=== PATIENT | male | born 1950 | race Caucasian/White ===

== ENCOUNTER 2020-04-22 13:22 | Inpatient (IN) ==
[~2020-04-22 13:22] MED LIST: MIDAZOLAM 2 MG/2 ML VIAL ONE; fentaNYL 100 MCG/2 ML VIAL ONE
[2020-04-22] MEDS ORDERED: ENOXAPARIN 60 MG/0.6 ML SYRINGE ONE (13:24)
[2020-04-22] MEDS ORDERED: TICAGRELOR 90 MG TABLET ONE (13:30)
[2020-04-22] MEDS ORDERED: TIROFIBAN 5,000 MCG/100 ML PREMIX IV ONE (13:30)
[2020-04-22] MEDS ORDERED: TIROFIBAN 5,000 MCG/100 ML PREMIX IV SCH (13:39)
[2020-04-22] MEDS ORDERED: LIDOCAINE 1%/EPI INJ 20 ML VIAL ONE (14:24)
[2020-04-22] MEDS ORDERED: HEPARIN/NACL 0.9% 2 UNITS/ML 1,000 ML IV ONE (14:24)
[2020-04-22] MEDS ORDERED: ONDANSETRON 4 MG/2 ML VIAL IV PRN (14:26)
[2020-04-22] MEDS ORDERED: HYDROmorphone 2 MG/1 ML VIAL IV PRN (14:26)
[2020-04-22] MEDS ORDERED: ACETAMINOPHEN/CODEINE 300-30 MG TABLET PO PRN (14:26)
[2020-04-22] MEDS ORDERED: guaiFENesin/DM ER 600-30 MG TABLET PO PRN (14:30)
[2020-04-22] MEDS ORDERED: SODIUM CHLORIDE 0.45% 1,000 ML IV SCH (14:30)
[2020-04-22] MEDS ORDERED: LACTULOSE 20 GM/30 ML UDCUP PO PRN (14:30)
[2020-04-22] MEDS ORDERED: POTASSIUM CHLORIDE 20 MEQ TABLET PO PRN (14:31)
[2020-04-22] MEDS ORDERED: INFLUENZA VIRUS VACCINE 0.5 ML SYRINGE IM ONE (17:24)
[2020-04-22] MEDS ORDERED: PNEUMOCOCCAL VACCINE (13 VALENT) 0.5 ML SYRINGE IM ONE (17:26)
[2020-04-22] MEDS: TICAGRELOR 90 MG TABLET PO SCH (20:55)
[2020-04-22] MEDS: ATORVASTATIN 40 MG TABLET PO SCH (20:55)
[2020-04-23 01:04] LABS: Basophils % 0.3 % (0.0-0.8); Eosinophils # 0.2 10*3/uL (0.0-0.87); Eosinophils % 1.5 % (0.00-10.9); Hematocrit 36.7 VOL% (42.0-52.0); Hemoglobin 13.4 GM/DL (14.0-18.0); Immature Granulocytes % 0.4 %; Immature Granulocytes Absolute 0.04 #; Lymphocytes % 10.5 % (21.2-54.2); Mean Corpuscular HGB Conc 36.5 GM/DL (32-36); Mean Corpuscular Volume 92.7 FL (87-102); Monocytes % 9.3 % (1.7-12.7); Platelet Count 163 T/CUMM (130-400); Red Blood Count 3.96 MC/CUMM (3.8-5.5); Red Cell Distribution Width 12.2 % (9.3-17.3); White Blood Count 9.9 T/CUMM (4-12)
[2020-04-23 01:31] LABS: Albumin 3.5 G/DL (3.4-5.0); Bilirubin,Total 1.4 MG/DL (0.2-1.0); Osmolality,Calculated 280.5 MOS/KG (273-304); Total Protein 6.8 G/DL (6.4-8.3)
[2020-04-23 02:14] LABS: Calcium 8.9 MG/DL (8.5-10.1); Osmolality,Calculated 280.5 MOS/KG (273-304)
[2020-04-23] MEDS: ASPIRIN EC 81 MG TABLET PO SCH (08:05)
[2020-04-23] MEDS: PANTOPRAZOLE 40 MG TABLET PO SCH (08:06)
[2020-04-23] MEDS: MULTIVITAMIN (CENTRUM) TABLET PO SCH (08:06)
[2020-04-23] MEDS: TICAGRELOR 90 MG TABLET PO SCH ×2 (08:06→21:30)
[2020-04-23] MEDS ORDERED: GLUCAGON 1 MG VIAL IM PRN (08:47)
[2020-04-23] MEDS ORDERED: DEXTROSE 50% 25 GM/50 ML VIAL IV PRN (08:47)
[2020-04-23] MEDS: DICLOFENAC SODIUM 75 MG TABLET PO SCH ×2 (08:55→21:35)
[2020-04-23] MEDS: GABAPENTIN 300 MG CAPSULE PO SCH ×3 (08:55→21:30)
[2020-04-23] MEDS: traMADol 50 MG TABLET PO PRN ×3 (08:55→21:30)
[2020-04-23] MEDS: METOPROLOL TARTRATE 25 MG TABLET PO SCH ×2 (08:55→21:30)
[2020-04-23] MEDS ORDERED: lisinopriL 2.5 MG TABLET PO SCH (09:00)
[2020-04-23] MEDS ORDERED: lisinopriL 20 MG TABLET PO SCH ×2 (09:00→21:00)
[2020-04-23 10:21] LABS: Risk Ratio 4.96; VLDL CHOLESTEROL 37.4 MG/DL
[2020-04-23 12:23] LABS: CKMB % 5.6 %
[2020-04-23] MEDS: INSULIN LISPRO 100 UNIT/ML SUBCUT SCH ×2 (14:40→17:11)
[2020-04-23] MEDS: ATORVASTATIN 40 MG TABLET PO SCH (21:30)
[2020-04-23] MEDS: TAMSULOSIN 0.4 MG CAPSULE PO SCH (21:31)
[2020-04-24 06:10] LABS: Basophils % 0.7 % (0.0-0.8); Eosinophils # 0.2 10*3/uL (0.0-0.87); Eosinophils % 3.6 % (0.00-10.9); Hematocrit 33.4 VOL% (42.0-52.0); Hemoglobin 11.9 GM/DL (14.0-18.0); Immature Granulocytes % 0.5 %; Immature Granulocytes Absolute 0.03 #; Lymphocytes # 1.2 10*3/uL (1.4-4.0); Lymphocytes % 20.3 % (21.2-54.2); Mean Corpuscular HGB Conc 35.6 GM/DL (32-36); Mean Corpuscular Volume 94.1 FL (87-102); Mean Platelet Volume 9.4 FL (9.6-12.0); Monocytes % 11.2 % (1.7-12.7); Neutrophils % 63.7 % (38.7-73.9); Platelet Count 145 T/CUMM (130-400); Red Blood Count 3.55 MC/CUMM (3.8-5.5); Red Cell Distribution Width 12.6 % (9.3-17.3); White Blood Count 6.1 T/CUMM (4-12)
[2020-04-24 06:54] LABS: CKMB % 3.1 %; Calcium 8.4 MG/DL (8.5-10.1); Osmolality,Calculated 284.4 MOS/KG (273-304)
[2020-04-24] MEDS: INSULIN LISPRO 100 UNIT/ML SUBCUT SCH ×5 (07:16→22:43)
[2020-04-24] MEDS ORDERED: lisinopriL 20 MG TABLET PO SCH (09:00)
[2020-04-24] MEDS: METOPROLOL TARTRATE 25 MG TABLET PO SCH ×2 (09:25→20:43)
[2020-04-24] MEDS: TICAGRELOR 90 MG TABLET PO SCH ×2 (09:25→20:43)
[2020-04-24] MEDS: ASPIRIN EC 81 MG TABLET PO SCH (09:25)
[2020-04-24] MEDS: PANTOPRAZOLE 40 MG TABLET PO SCH (09:26)
[2020-04-24] MEDS: GABAPENTIN 300 MG CAPSULE PO SCH ×3 (09:26→20:43)
[2020-04-24] MEDS: MULTIVITAMIN (CENTRUM) TABLET PO SCH (09:26)
[2020-04-24] MEDS: DICLOFENAC SODIUM 75 MG TABLET PO SCH ×2 (09:26→20:43)
[2020-04-24] MEDS ORDERED: SODIUM CHLORIDE 0.9% 1,000 ML IV SCH (09:30)
[2020-04-24] MEDS: traMADol 50 MG TABLET PO PRN (09:36)
[2020-04-24] MEDS: ATORVASTATIN 40 MG TABLET PO SCH (20:44)
[2020-04-24] MEDS: TAMSULOSIN 0.4 MG CAPSULE PO SCH (20:44)
[2020-04-25 04:50] LABS: Basophils % 0.5 % (0.0-0.8); Eosinophils # 0.3 10*3/uL (0.0-0.87); Eosinophils % 4.6 % (0.00-10.9); Hematocrit 33.6 VOL% (42.0-52.0); Hemoglobin 11.9 GM/DL (14.0-18.0); Immature Granulocytes % 0.5 %; Immature Granulocytes Absolute 0.03 #; Lymphocytes # 1.3 10*3/uL (1.4-4.0); Lymphocytes % 20.8 % (21.2-54.2); Mean Corpuscular HGB Conc 35.4 GM/DL (32-36); Mean Corpuscular Volume 95.5 FL (87-102); Mean Platelet Volume 9.4 FL (9.6-12.0); Monocytes % 8.6 % (1.7-12.7); Platelet Count 138 T/CUMM (130-400); Red Blood Count 3.52 MC/CUMM (3.8-5.5); Red Cell Distribution Width 12.6 % (9.3-17.3); White Blood Count 6.3 T/CUMM (4-12)
[2020-04-25 05:29] LABS: CKMB % 2.7 %; Calcium 8.5 MG/DL (8.5-10.1); Osmolality,Calculated 288.1 MOS/KG (273-304)
[2020-04-25] MEDS: INSULIN LISPRO 100 UNIT/ML SUBCUT SCH (07:56)
[2020-04-25] MEDS: ASPIRIN EC 81 MG TABLET PO SCH (08:33)
[2020-04-25] MEDS: TICAGRELOR 90 MG TABLET PO SCH (08:33)
[2020-04-25] MEDS: METOPROLOL TARTRATE 25 MG TABLET PO SCH (08:34)
[2020-04-25] MEDS: DICLOFENAC SODIUM 75 MG TABLET PO SCH (08:36)
[2020-04-25] MEDS: PANTOPRAZOLE 40 MG TABLET PO SCH (08:36)
[2020-04-25] MEDS: GABAPENTIN 300 MG CAPSULE PO SCH (08:36)
[2020-04-25] MEDS: MULTIVITAMIN (CENTRUM) TABLET PO SCH (08:36)
[2020-04-25 08:39] VITALS: BP 110/64
== END 2020-04-25 10:50 | disposition home or self-care (01) | DRG 247 ==
LOC: N.CL 13:22 → N.CVR 16:05 → N.ICU 04-23 00:30 → N.TELES 04-23 19:22
PROVIDERS: ADMIT Internal Medicine Interventional Cardiology; ATTEND Internal Medicine Interventional Cardiology
PROC: CLCCHCL (ICD-10-PCS; 2020-04-22 13:45)

== ENCOUNTER 2021-01-04 15:40 | Inpatient (IN) ==
[2021-01-04 20:40] LABS: Basophils % 0.2 % (0.0-0.8); Eosinophils # 0.2 10*3/uL (0.0-0.87); Eosinophils % 2.8 % (0.00-10.9); Hematocrit 37.2 VOL% (42.0-52.0); Hemoglobin 12.8 GM/DL (14.0-18.0); Immature Granulocytes % 0.6 %; Immature Granulocytes Absolute 0.05 #; Lymphocytes # 1.2 10*3/uL (1.4-4.0); Lymphocytes % 13.2 % (21.2-54.2); Mean Corpuscular HGB Conc 34.4 GM/DL (32-36); Mean Corpuscular Volume 96.1 FL (87-102); Monocytes % 9.4 % (1.7-12.7); Neutrophils % 73.8 % (38.7-73.9); Platelet Count 143 T/CUMM (130-400); Red Blood Count 3.87 MC/CUMM (3.8-5.5); Red Cell Distribution Width 12.9 % (9.3-17.3); White Blood Count 8.7 T/CUMM (4-12)
[2021-01-04 20:59] LABS: Albumin 3.6 G/DL (3.4-5.0); Calcium 8.8 MG/DL (8.5-10.1); Osmolality,Calculated 276.7 MOS/KG (273-304); Potassium 4.1 MMOL/L (3.5-5.1); Total Protein 7.2 G/DL (6.4-8.2)
[2021-01-04] MEDS ORDERED: VANCOMYCIN INJ 1,000 MG in SODIUM CHLORIDE 0.9% 250 ML IV STA (21:29)
[2021-01-04 21:33] LABS: Sedimentation Rate-Westergren 45 MM/HR (0-20)
[2021-01-04] MEDS ORDERED: DEXTROSE 50% 25 GM/50 ML VIAL IV PRN (22:25)
[2021-01-04] MEDS ORDERED: ACETAMINOPHEN 325 MG TABLET PO PRN (22:25)
[2021-01-04] MEDS ORDERED: GLUCAGON 1 MG VIAL IM PRN (22:25)
[2021-01-04] MEDS ORDERED: VANCOMYCIN IV SCH (23:00)
[2021-01-04] MEDS: TICAGRELOR 90 MG TABLET PO SCH (23:48)
[2021-01-04] MEDS: METOPROLOL TARTRATE 25 MG TABLET PO SCH (23:48)
[2021-01-04] MEDS: TAMSULOSIN 0.4 MG CAPSULE PO SCH (23:49)
[2021-01-04] MEDS: ATORVASTATIN 40 MG TABLET PO SCH (23:49)
[2021-01-05] MEDS ORDERED: hydrALAZINE 20 MG/1 ML VIAL IV PRN (01:21)
[2021-01-05 05:08] LABS: Basophils % 0.3 % (0.0-0.8); Eosinophils # 0.2 10*3/uL (0.0-0.87); Eosinophils % 1.8 % (0.00-10.9); Hematocrit 34.6 VOL% (42.0-52.0); Hemoglobin 12.7 GM/DL (14.0-18.0); Immature Granulocytes % 0.4 %; Immature Granulocytes Absolute 0.04 #; Lymphocytes % 10.7 % (21.2-54.2); Mean Corpuscular HGB Conc 36.7 GM/DL (32-36); Mean Corpuscular Volume 92.3 FL (87-102); Mean Platelet Volume 9.1 FL (9.6-12.0); Monocytes % 9.9 % (1.7-12.7); Neutrophils % 76.9 % (38.7-73.9); Platelet Count 161 T/CUMM (130-400); Red Blood Count 3.75 MC/CUMM (3.8-5.5); Red Cell Distribution Width 12.6 % (9.3-17.3); White Blood Count 9.3 T/CUMM (4-12)
[2021-01-05 05:22] LABS: Albumin 3.4 G/DL (3.4-5.0); Bilirubin,Total 1.8 MG/DL (0.2-1.0); Calcium 8.8 MG/DL (8.5-10.1); Osmolality,Calculated 277.7 MOS/KG (273-304); Total Protein 6.8 G/DL (6.4-8.2)
[2021-01-05] MEDS: lisinopriL 20 MG TABLET PO SCH (08:29)
[2021-01-05] MEDS: ASPIRIN EC 81 MG TABLET PO SCH (08:29)
[2021-01-05] MEDS: PANTOPRAZOLE 40 MG TABLET PO SCH (08:29)
[2021-01-05] MEDS: TICAGRELOR 90 MG TABLET PO SCH ×2 (08:30→20:03)
[2021-01-05] MEDS: GABAPENTIN 300 MG CAPSULE PO SCH ×3 (08:30→20:04)
[2021-01-05] MEDS: METOPROLOL TARTRATE 25 MG TABLET PO SCH ×2 (08:30→20:03)
[2021-01-05] MEDS: VANCOMYCIN INJ 1,250 MG in SODIUM CHLORIDE 0.9% 250 ML IV SCH ×2 (08:31→20:04)
[2021-01-05] MEDS: LACTATED RINGERS 1,000 ML IV SCH ×2 (08:32→15:05)
[2021-01-05] MEDS ORDERED: ENOXAPARIN 40 MG/0.4 ML SYRINGE SUBCUT SCH (09:00)
[2021-01-05] MEDS ORDERED: fentaNYL 100 MCG/2 ML VIAL ONE (11:11)
[2021-01-05] MEDS ORDERED: LIDOCAINE 2% 5 ML VIAL ONE (11:11)
[2021-01-05] MEDS ORDERED: propofoL 200 MG/20 ML VIAL IV ONE (11:11)
[2021-01-05] MEDS ORDERED: MIDAZOLAM 2 MG/2 ML VIAL ONE (11:12)
[2021-01-05] MEDS ORDERED: BACITRACIN OINT 0.9 GM PACK TOP ONE (12:57)
[2021-01-05] MEDS ORDERED: PHENYLEPHRINE 1 MG/10 ML SYRINGE IV ONE (13:09)
[2021-01-05] MEDS ORDERED: SEVOFLURANE 1 UNIT/15 MINUTE INH ONE (13:09)
[2021-01-05] MEDS ORDERED: ONDANSETRON 4 MG/2 ML VIAL ONE (13:09)
[2021-01-05] MEDS ORDERED: MORPHINE 4 MG/1 ML VIAL IV PRN (13:15)
[2021-01-05] MEDS: TAMSULOSIN 0.4 MG CAPSULE PO SCH (20:03)
[2021-01-05] MEDS: ATORVASTATIN 40 MG TABLET PO SCH (20:03)
[2021-01-06] MEDS: TICAGRELOR 90 MG TABLET PO SCH ×2 (08:49→21:55)
[2021-01-06] MEDS: GABAPENTIN 300 MG CAPSULE PO SCH ×3 (08:49→21:55)
[2021-01-06] MEDS: PANTOPRAZOLE 40 MG TABLET PO SCH (08:49)
[2021-01-06] MEDS: METOPROLOL TARTRATE 25 MG TABLET PO SCH ×2 (08:49→21:55)
[2021-01-06] MEDS: lisinopriL 20 MG TABLET PO SCH ×2 (08:49→09:20)
[2021-01-06] MEDS: ASPIRIN EC 81 MG TABLET PO SCH (08:49)
[2021-01-06] MEDS: VANCOMYCIN INJ 1,250 MG in SODIUM CHLORIDE 0.9% 250 ML IV SCH ×2 (08:50→21:56)
[2021-01-06] MEDS: metFORMIN 500 MG TABLET PO SCH (16:48)
[2021-01-06] MEDS: ATORVASTATIN 40 MG TABLET PO SCH (21:55)
[2021-01-06] MEDS: TAMSULOSIN 0.4 MG CAPSULE PO SCH (21:55)
[2021-01-07] MEDS: metFORMIN 500 MG TABLET PO SCH (09:04)
[2021-01-07] MEDS: lisinopriL 20 MG TABLET PO SCH (09:04)
[2021-01-07] MEDS: GABAPENTIN 300 MG CAPSULE PO SCH (09:04)
[2021-01-07] MEDS: ASPIRIN EC 81 MG TABLET PO SCH (09:04)
[2021-01-07] MEDS: TICAGRELOR 90 MG TABLET PO SCH (09:04)
[2021-01-07] MEDS: METOPROLOL TARTRATE 25 MG TABLET PO SCH (09:04)
[2021-01-07] MEDS: VANCOMYCIN INJ 1,250 MG in SODIUM CHLORIDE 0.9% 250 ML IV SCH (09:04)
[2021-01-07] MEDS: PANTOPRAZOLE 40 MG TABLET PO SCH (09:04)
[2021-01-07 12:23] VITALS: BP 119/63
== END 2021-01-07 14:31 | disposition home health service (06) | DRG 502 ==
LOC: N.EDINP 15:40 → N.ED 15:40 → SUATTDRO 22:25 → N.TELEN 01-05 05:23
PROVIDERS: ADMIT Internal Medicine; ATTEND Internal Medicine Geriatric Medicine

== ENCOUNTER 2021-04-17 10:02 | Inpatient (IN) ==
[2021-04-17 10:29] LABS: Basophils % 0.3 % (0.0-0.8); Eosinophils # 0.1 10*3/uL (0.0-0.87); Eosinophils % 1.2 % (0.00-10.9); Hematocrit 24.4 VOL% (42.0-52.0); Hemoglobin 8.3 GM/DL (14.0-18.0); Immature Granulocytes % 0.5 %; Immature Granulocytes Absolute 0.04 #; Lymphocytes # 0.7 10*3/uL (1.4-4.0); Mean Corpuscular Volume 98.4 FL (87-102); Mean Platelet Volume 9.7 FL (9.6-12.0); Monocytes % 7.9 % (1.7-12.7); Neutrophils % 80.1 % (38.7-73.9); Platelet Count 162 T/CUMM (130-400); Red Blood Count 2.48 MC/CUMM (3.8-5.5); Red Cell Distribution Width 14.7 % (9.3-17.3); White Blood Count 7.4 T/CUMM (4-12)
[2021-04-17 10:40] LABS: PT Patient Result 11.4 SECS (10.5-12.0); Partial Thromboplastin Time 29.3 SECS (23.9-33.8)
[2021-04-17 11:05] LABS: Albumin 3.7 G/DL (3.4-5.0); Calcium 8.5 MG/DL (8.5-10.1); Osmolality,Calculated 282.7 MOS/KG (273-304); Potassium 3.8 MMOL/L (3.5-5.1); Total Protein 6.5 G/DL (6.4-8.2)
[2021-04-17] MEDS ORDERED: NITROGLYCERIN SL 0.4 MG TABLET SL PRN (11:13)
[2021-04-17] MEDS ORDERED: MORPHINE 2 MG/1 ML SYRINGE IV STA (11:19)
[2021-04-17] MEDS ORDERED: ONDANSETRON 4 MG/2 ML VIAL IV ONE (11:20)
[2021-04-17] MEDS ORDERED: MORPHINE 2 MG/1 ML SYRINGE ONE (11:20)
[2021-04-17] MEDS ORDERED: ONDANSETRON 4 MG/2 ML VIAL ONE (11:20)
[2021-04-17] MEDS ORDERED: ISOSORBIDE MONONITRATE 30 MG TABLET PO SCH (11:30)
[2021-04-17] MEDS ORDERED: ACETAMINOPHEN 325 MG TABLET PO PRN (11:31)
[2021-04-17] MEDS ORDERED: ONDANSETRON 4 MG/2 ML VIAL IV PRN (11:31)
[2021-04-17] MEDS ORDERED: DOCUSATE SODIUM 100 MG CAPSULE PO PRN (11:31)
[2021-04-17] MEDS ORDERED: GLUCAGON 1 MG VIAL IM PRN (11:31)
[2021-04-17] MEDS ORDERED: DEXTROSE 50% 25 GM/50 ML VIAL IV PRN (11:31)
[2021-04-17] MEDS: TICAGRELOR 90 MG TABLET PO SCH ×2 (13:43→20:57)
[2021-04-17] MEDS: METOPROLOL TARTRATE 50 MG TABLET PO SCH ×2 (13:43→20:57)
[2021-04-17] MEDS ORDERED: ENOXAPARIN 80 MG/0.8 ML SYRINGE SUBCUT SCH (15:30)
[2021-04-17] MEDS: INSULIN REGULAR 100 UNIT/ML SUBCUT SCH ×2 (15:42→21:05)
[2021-04-17 16:07] LABS: Calcium 8.5 MG/DL (8.5-10.1); Osmolality,Calculated 281.8 MOS/KG (273-304); Potassium 4.5 MMOL/L (3.5-5.1)
[2021-04-17] MEDS ORDERED: traMADol 50 MG TABLET PO PRN (16:37)
[2021-04-17 16:45] LABS: Basophils % 0.3 % (0.0-0.8); Eosinophils % 0.2 % (0.00-10.9); Hematocrit 26.4 VOL% (42.0-52.0); Hemoglobin 8.8 GM/DL (14.0-18.0); Immature Granulocytes % 0.9 %; Immature Granulocytes Absolute 0.08 #; Lymphocytes # 0.8 10*3/uL (1.4-4.0); Lymphocytes % 8.4 % (21.2-54.2); Mean Corpuscular HGB Conc 33.3 GM/DL (32-36); Mean Corpuscular Volume 100.8 FL (87-102); Mean Platelet Volume 9.4 FL (9.6-12.0); Monocytes % 9.5 % (1.7-12.7); Neutrophils % 80.7 % (38.7-73.9); Platelet Count 220 T/CUMM (130-400); Red Blood Count 2.62 MC/CUMM (3.8-5.5); White Blood Count 9.2 T/CUMM (4-12)
[2021-04-17] MEDS: ATORVASTATIN 40 MG TABLET PO SCH (20:57)
[2021-04-17] MEDS ORDERED: METOPROLOL TARTRATE 25 MG TABLET PO SCH (21:00)
[2021-04-17] MEDS: MORPHINE 2 MG/1 ML SYRINGE IV PRN (22:48)
[2021-04-17] MEDS ORDERED: SODIUM CHLORIDE 0.9% 1,000 ML IV ONE (23:12)
[2021-04-17 23:21] LABS: Basophils % 0.2 % (0.0-0.8); Eosinophils % 0.1 % (0.00-10.9); Hematocrit 27.9 VOL% (42.0-52.0); Hemoglobin 9.2 GM/DL (14.0-18.0); Immature Granulocytes % 1.8 %; Immature Granulocytes Absolute 0.21 #; Lymphocytes # 1.7 10*3/uL (1.4-4.0); Lymphocytes % 14.8 % (21.2-54.2); Mean Corpuscular Volume 101.5 FL (87-102); Mean Platelet Volume 9.8 FL (9.6-12.0); Monocytes % 10.1 % (1.7-12.7); NRBC # 0.02 10*3/uL; Platelet Count 231 T/CUMM (130-400); Red Blood Count 2.75 MC/CUMM (3.8-5.5); Red Cell Distribution Width 15.7 % (9.3-17.3); White Blood Count 11.6 T/CUMM (4-12)
[2021-04-17] MEDS ORDERED: SUCCINYLCHOLINE 200 MG/10 ML VIAL IV ONE (23:40)
[2021-04-17] MEDS ORDERED: ETOMIDATE 20 MG/10 ML VIAL IV ONE ×2 (23:40→23:41)
[2021-04-17] MEDS ORDERED: SUCCINYLCHOLINE 200 MG/10 ML VIAL ONE (23:42)
[2021-04-17 23:49] LABS: Albumin 3.7 G/DL (3.4-5.0); Bilirubin,Total 3.8 MG/DL (0.20-1.00); Calcium 8.6 MG/DL (8.5-10.1); Osmolality,Calculated 275.4 MOS/KG (273-304)
[2021-04-17 23:55] LABS: Potassium 6.8 MMOL/L (3.5-5.1)
[2021-04-18] MEDS ORDERED: DEXTROSE 50% 25 GM/50 ML SYRINGE IV ONE (00:02)
[2021-04-18] MEDS ORDERED: SODIUM BICARBONATE 50 MEQ/50 ML SYRINGE IV ONE ×4 (00:02→19:46)
[2021-04-18] MEDS ORDERED: SUCCINYLCHOLINE 200 MG/10 ML VIAL ONE (00:02)
[2021-04-18] MEDS ORDERED: CALCIUM CHLORIDE 1,000 MG/10 ML SYRINGE IV ONE (00:02)
[2021-04-18] MEDS ORDERED: INSULIN REGULAR 100 UNIT/ML ONE (00:02)
[2021-04-18] MEDS ORDERED: ATROPINE 1 MG/10 ML SYRINGE ONE ×2 (00:02→10:32)
[2021-04-18] MEDS ORDERED: ETOMIDATE 20 MG/10 ML VIAL IV ONE (00:02)
[2021-04-18] MEDS ORDERED: EPINEPHrine 1 MG/10 ML SYRINGE ONE ×4 (00:02→12:32)
[2021-04-18] MEDS ORDERED: EPINEPHrine 1 MG/ML VIAL ONE ×2 (00:13→10:24)
[2021-04-18] MEDS ORDERED: LIDOCAINE 1% 20 ML VIAL ONE (00:13)
[2021-04-18] MEDS ORDERED: HEPARIN/NACL 0.9% 2 UNITS/ML 2,000 UNIT/1,000 ML BAG IV ONE (00:13)
[2021-04-18 00:29] LABS: ABG Base Excess -17.1 MMOL/L (-2.5-2.5); ABG HCO3 11.4 MMOL/L (20-26); ABG Oxygen Saturation 99.6 % (95-100); ABG PCO2 40.2 MM HG (35-48); ABG TCO2 11.7 MMOL/L (23-27)
[2021-04-18 00:31] LABS: ABG PH 7.083 (7.35-7.45)
[2021-04-18] MEDS ORDERED: MIDAZOLAM 2 MG/2 ML VIAL ONE (00:52)
[2021-04-18] MEDS ORDERED: HEPARIN 5,000 UNIT/1 ML VIAL ONE ×2 (00:52→01:00)
[2021-04-18] MEDS ORDERED: HEPARIN/NACL 0.9% 2 UNITS/ML 1,000 UNIT/500 ML BAG IV ONE (01:12)
[2021-04-18] MEDS ORDERED: TICAGRELOR 90 MG TABLET ONE (01:29)
[2021-04-18] MEDS ORDERED: FUROSEMIDE INJ 200 MG in SODIUM CHLORIDE 0.9% 80 ML IV SCH (01:30)
[2021-04-18] MEDS: SODIUM BICARB INJ 150 MEQ in STERILE WATER INJ 850 ML IV SCH ×4 (01:59→20:42)
[2021-04-18 03:09] LABS: ABG Base Excess -8.2 MMOL/L (-2.5-2.5); ABG HCO3 18.4 MMOL/L (20-26); ABG Oxygen Saturation 98.6 % (95-100); ABG PCO2 42.8 MM HG (35-48); ABG PH 7.251 (7.35-7.45); ABG PO2 288.7 MM HG (80-95); ABG TCO2 19.7 MMOL/L (23-27)
[2021-04-18 03:24] LABS: Basophils % 0.1 % (0.0-0.8); Eosinophils % 0.1 % (0.00-10.9); Hematocrit 20.8 VOL% (42.0-52.0); Immature Granulocytes % 2.8 %; Immature Granulocytes Absolute 0.49 #; Lymphocytes # 1.6 10*3/uL (1.4-4.0); Lymphocytes % 9.3 % (21.2-54.2); Mean Corpuscular HGB Conc 33.2 GM/DL (32-36); Mean Platelet Volume 10.1 FL (9.6-12.0); Monocytes % 8.5 % (1.7-12.7); NRBC # 0.04 10*3/uL; Neutrophils % 79.2 % (38.7-73.9); Platelet Count 213 T/CUMM (130-400); White Blood Count 17.5 T/CUMM (4-12)
[2021-04-18 03:25] LABS: Hemoglobin 6.9 GM/DL (14.0-18.0); Red Blood Count 2.06 MC/CUMM (3.8-5.5)
[2021-04-18 03:48] LABS: Calcium 9.1 MG/DL (8.5-10.1); Osmolality,Calculated 294.1 MOS/KG (273-304); Potassium 4.6 MMOL/L (3.5-5.1); Risk Ratio 2.14; Thyroid Stimulating Hormone 3.57 uIU/ml (0.358-3.74); VLDL Cholesterol 22.6 MG/DL
[2021-04-18 04:03] LABS: Band Neutrophils 5 % (0-10); Lymphocytes 4 % (20-55); Segmented Neutrophils 89 % (50-85); Total Cells Counted 100
[2021-04-18 04:04] LABS: Anisocytosis 1+; Microcytosis 1+; Ovalocytes Slight; Polychromasia Slight
[2021-04-18 05:33] LABS: ABG HCO3 17.8 MMOL/L (20-26); ABG PH 7.317 (7.35-7.45); ABG TCO2 16.6 MMOL/L (23-27)
[2021-04-18 06:23] LABS: Basophils % 0.1 % (0.0-0.8); Hematocrit 19.2 VOL% (42.0-52.0); Hemoglobin 6.5 GM/DL (14.0-18.0); Immature Granulocytes % 1.4 %; Immature Granulocytes Absolute 0.29 #; Lymphocytes % 4.8 % (21.2-54.2); Mean Corpuscular HGB Conc 33.9 GM/DL (32-36); Monocytes % 9.3 % (1.7-12.7); NRBC # 0.09 10*3/uL; Neutrophils % 84.4 % (38.7-73.9); Platelet Count 227 T/CUMM (130-400); Red Blood Count 1.92 MC/CUMM (3.8-5.5); Red Cell Distribution Width 15.2 % (9.3-17.3); White Blood Count 20.7 T/CUMM (4-12)
[2021-04-18 06:41] LABS: Band Neutrophils 7 % (0-10); Lymphocytes 3 % (20-55); Metamyelocytes 1 %; Segmented Neutrophils 81 % (50-85); Total Cells Counted 100
[2021-04-18 06:42] LABS: Polychromasia Slight
[2021-04-18 06:43] LABS: Microcytosis 2+; Ovalocytes Slight
[2021-04-18 06:44] LABS: Platelet Estimate Normal
[2021-04-18] MEDS ORDERED: SODIUM CHLORIDE 0.9% 1,000 ML IV PRN ×2 (06:44→12:53)
[2021-04-18 07:35] LABS: Amorphous Crystals,Urine Occasional /HPF (Few); Bacteria,Urine Few /HPF (Few); Bilirubin,Urine Negative (Negative); Blood, Urine Moderate mg/dL (Negative); Glucose,Urine (UA) 50 mg/dL (Negative); Hyaline Casts,Urine 14 /LPF (0-3); Ketones,Urine Negative (Negative); Mucus,Urine Occasional /LPF (Occasional); Nitrite,Urine Negative (Negative); Protein,Urine 100 MG/DL; RBC,Urine 4 /HPF (0-4); Squamous Epithelial Cell,Urine Occasional /HPF (0-10); Urine Appearance CLOUDY (Clear); Urine Color Amber (Yellow); Urine Specific Gravity 1.032 (1.001-1.035); Urine Urobilinogen < 2.0 EU/DL (0.2-1.0)
[2021-04-18] MEDS ORDERED: lisinopriL 20 MG TABLET PO SCH (09:00)
[2021-04-18] MEDS ORDERED: PANTOPRAZOLE 40 MG TABLET PO SCH ×2 (09:00)
[2021-04-18] MEDS ORDERED: SODIUM CHLORIDE 0.9% 500 ML IV ONE (09:02)
[2021-04-18] MEDS ORDERED: NOREPINEPHRINE 4 MG/4 ML VIAL IV ONE (09:12)
[2021-04-18] MEDS: NOREPINEPHRINE 16 MG in SODIUM CHLORIDE 0.9% 234 ML IV PRN ×3 (09:21→21:16)
[2021-04-18] MEDS: INSULIN REGULAR 100 UNIT/ML SUBCUT SCH ×3 (09:41→15:26)
[2021-04-18 10:01] LABS: Albumin 2.8 G/DL (3.4-5.0); Bilirubin,Direct 1.58 MG/DL (0.0-0.20); Bilirubin,Indirect 2.3 MG/DL (0.0-1.0); Bilirubin,Total 3.9 MG/DL (0.20-1.00); Total Protein 5.5 G/DL (6.4-8.2)
[2021-04-18] MEDS: PANTOPRAZOLE 40 MG VIAL IV SCH ×2 (10:04→22:15)
[2021-04-18] MEDS: ASPIRIN EC 81 MG TABLET PO SCH (10:04)
[2021-04-18] MEDS: TICAGRELOR 90 MG TABLET PO SCH ×2 (10:04→22:15)
[2021-04-18] MEDS ORDERED: SODIUM CHLORIDE 0.9% 500 ML BAG IV ONE (10:32)
[2021-04-18 10:41] LABS: ABG Base Excess -17.4 MMOL/L (-2.5-2.5); ABG HCO3 11.1 MMOL/L (20-26); ABG Oxygen Saturation 99.1 % (95-100); ABG PCO2 32.7 MM HG (35-48); ABG TCO2 10.5 MMOL/L (23-27); Glucose Heart Surgery 141 MG/DL (74-106); Hematocrit Heart Surgery 22.7 PERCENT (42-52); Hemoglobin Heart Surgery 7.3 G/DL (14.0-18.0); Potassium Heart/CVR 4.9 MMOL/L (3.5-5.1)
[2021-04-18 10:42] LABS: ABG PH 7.123 (7.35-7.45)
[2021-04-18 11:15] LABS: Basophils % 0.1 % (0.0-0.8); Hematocrit 20.1 VOL% (42.0-52.0); Hemoglobin 6.5 GM/DL (14.0-18.0); Immature Granulocytes % 1.5 %; Immature Granulocytes Absolute 0.32 #; Lymphocytes # 1.1 10*3/uL (1.4-4.0); Lymphocytes % 5.1 % (21.2-54.2); Mean Corpuscular HGB Conc 32.3 GM/DL (32-36); Mean Platelet Volume 10.4 FL (9.6-12.0); Monocytes % 9.4 % (1.7-12.7); NRBC # 0.15 10*3/uL; Neutrophils % 83.9 % (38.7-73.9); Platelet Count 252 T/CUMM (130-400); Red Blood Count 1.97 MC/CUMM (3.8-5.5)
[2021-04-18 11:22] LABS: INR 1.6; PT Patient Result 17.2 SECS (10.5-12.0); Partial Thromboplastin Time 28.2 SECS (23.9-33.8)
[2021-04-18 12:07] LABS: Albumin 2.4 G/DL (3.4-5.0); Bilirubin,Total 3.2 MG/DL (0.20-1.00); Osmolality,Calculated 301.6 MOS/KG (273-304); Potassium 4.9 MMOL/L (3.5-5.1); Total Protein 4.8 G/DL (6.4-8.2)
[2021-04-18 12:28] LABS: Band Neutrophils 8 % (0-10); Lymphocytes 4 % (20-55); Metamyelocytes 2 %; Segmented Neutrophils 83 % (50-85); Total Cells Counted 100
[2021-04-18 12:29] LABS: Microcytosis 1+; Polychromasia Slight
[2021-04-18 12:30] LABS: Platelet Estimate Normal
[2021-04-18] MEDS ORDERED: SODIUM BICARBONATE 50 MEQ/50 ML VIAL IV ONE ×2 (12:37→12:42)
[2021-04-18] MEDS ORDERED: ALBUMIN 5% 12.5 GM/250 ML VIAL IV ONE ×2 (12:43→12:48)
[2021-04-18] MEDS ORDERED: cefTRIAXone 1,000 MG in SODIUM CHLORIDE 0.9% 100 ML IV ONE (12:44)
[2021-04-18 13:42] LABS: Hematocrit 22.9 VOL% (42.0-52.0); Hemoglobin 7.4 GM/DL (14.0-18.0)
[2021-04-18] MEDS: PIPERACILLIN/TAZOBACTAM 3.375 MG in SODIUM CHLORIDE 0.9% 100 ML IV SCH (13:43)
[2021-04-18 16:46] LABS: ABG Base Excess -12.7 MMOL/L (-2.5-2.5); ABG HCO3 14.5 MMOL/L (20-26); ABG Oxygen Saturation 99.9 % (95-100); ABG PH 7.218 (7.35-7.45); ABG TCO2 13.4 MMOL/L (23-27)
[2021-04-18] MEDS ORDERED: CALCIUM GLUCONATE 2,000 MG in SODIUM CHLORIDE 0.9% 100 ML IV ONE (20:00)
[2021-04-18 20:40] LABS: Hemoglobin 9.1 GM/DL (14.0-18.0)
[2021-04-18 20:47] LABS: Osmolality,Calculated 295.1 MOS/KG (273-304); Potassium 4.6 MMOL/L (3.5-5.1)
[2021-04-18] MEDS: ATORVASTATIN 40 MG TABLET PO SCH (22:15)
[2021-04-18] MEDS: TAMSULOSIN 0.4 MG CAPSULE PO SCH (22:15)
[2021-04-19] MEDS: INSULIN REGULAR 100 UNIT/ML SUBCUT SCH ×4 (00:11→18:01)
[2021-04-19 00:16] LABS: ABG Base Excess -7.6 MMOL/L (-2.5-2.5); ABG HCO3 17.5 MMOL/L (20-26); ABG Oxygen Saturation 98.5 % (95-100); ABG PCO2 33.8 MM HG (35-48); ABG PH 7.331 (7.35-7.45); ABG PO2 241.9 MM HG (80-95); ABG TCO2 18.5 MMOL/L (23-27)
[2021-04-19 00:40] LABS: Basophils % 0.1 % (0.0-0.8); Hematocrit 27.4 VOL% (42.0-52.0); Hemoglobin 9.2 GM/DL (14.0-18.0); Immature Granulocytes % 2.1 %; Immature Granulocytes Absolute 0.34 #; Lymphocytes # 0.6 10*3/uL (1.4-4.0); Lymphocytes % 3.9 % (21.2-54.2); Mean Corpuscular HGB Conc 33.6 GM/DL (32-36); Mean Corpuscular Volume 96.1 FL (87-102); Monocytes % 7.6 % (1.7-12.7); NRBC # 0.57 10*3/uL; Neutrophils % 86.3 % (38.7-73.9); Platelet Count 173 T/CUMM (130-400); Red Blood Count 2.85 MC/CUMM (3.8-5.5); Red Cell Distribution Width 17.6 % (9.3-17.3); White Blood Count 16.1 T/CUMM (4-12)
[2021-04-19] MEDS: PIPERACILLIN/TAZOBACTAM 3.375 MG in SODIUM CHLORIDE 0.9% 100 ML IV SCH ×2 (00:53→12:50)
[2021-04-19 01:25] LABS: Band Neutrophils 2 % (0-10); Lymphocytes 4 % (20-55); Nucleated Red Blood Cells 3 (0-5); Segmented Neutrophils 87 % (50-85); Total Cells Counted 100
[2021-04-19 01:27] LABS: Hypochromasia 1+; Platelet Estimate Normal; Polychromasia Few
[2021-04-19] MEDS: MORPHINE 2 MG/1 ML SYRINGE IV PRN ×2 (02:12→05:42)
[2021-04-19] MEDS: SODIUM BICARB INJ 150 MEQ in STERILE WATER INJ 850 ML IV SCH ×3 (04:18→16:05)
[2021-04-19 04:22] LABS: Basophils % 0.1 % (0.0-0.8); Hematocrit 26.7 VOL% (42.0-52.0); Hemoglobin 8.7 GM/DL (14.0-18.0); Immature Granulocytes % 1.1 %; Immature Granulocytes Absolute 0.15 #; Lymphocytes # 0.8 10*3/uL (1.4-4.0); Lymphocytes % 5.6 % (21.2-54.2); Mean Corpuscular HGB Conc 32.6 GM/DL (32-36); Mean Corpuscular Volume 94.7 FL (87-102); Mean Platelet Volume 9.9 FL (9.6-12.0); Monocytes % 6.4 % (1.7-12.7); NRBC # 0.68 10*3/uL; Neutrophils % 86.8 % (38.7-73.9); Platelet Count 157 T/CUMM (130-400); Red Blood Count 2.82 MC/CUMM (3.8-5.5); Red Cell Distribution Width 17.7 % (9.3-17.3); White Blood Count 13.9 T/CUMM (4-12)
[2021-04-19 04:28] LABS: ABG Base Excess -3.5 MMOL/L (-2.5-2.5); ABG HCO3 21.5 MMOL/L (20-26); ABG PCO2 35.6 MM HG (35-48); ABG PH 7.378 (7.35-7.45); ABG TCO2 17.9 MMOL/L (23-27)
[2021-04-19 05:09] LABS: Albumin 2.8 G/DL (3.4-5.0); Bilirubin,Total 4.4 MG/DL (0.20-1.00); Osmolality,Calculated 306.7 MOS/KG (273-304); Potassium 4.4 MMOL/L (3.5-5.1); Total Protein 5.1 G/DL (6.4-8.2)
[2021-04-19] MEDS: NOREPINEPHRINE 16 MG in SODIUM CHLORIDE 0.9% 234 ML IV PRN ×2 (07:37→16:06)
[2021-04-19 08:05] LABS: Hematocrit 25.6 VOL% (42.0-52.0); Hemoglobin 8.9 GM/DL (14.0-18.0)
[2021-04-19] MEDS ORDERED: CALCIUM GLUCONATE 2,000 MG in SODIUM CHLORIDE 0.9% 100 ML IV ONE (09:00)
[2021-04-19] MEDS: ASPIRIN EC 81 MG TABLET PO SCH (09:15)
[2021-04-19] MEDS: PANTOPRAZOLE 40 MG VIAL IV SCH ×2 (09:15→20:14)
[2021-04-19] MEDS: TICAGRELOR 90 MG TABLET PO SCH ×2 (09:15→20:14)
[2021-04-19 16:20] LABS: Hematocrit 25.9 VOL% (42.0-52.0); Hemoglobin 8.9 GM/DL (14.0-18.0)
[2021-04-19 16:55] LABS: Hepatitis B Core IgM Quant 0.08 Index; Hepatitis B Surface Ag Quant 0.55 Index; Hepatitis B Surface Ag Result Non-Reactive (NonReactive); Hepatitis C Virus Ab Quant 0.03 Index; Hepatitis C Virus Ab Result Non-Reactive (NonReactive)
[2021-04-19] MEDS ORDERED: HEPARIN 10,000 UNIT/10 ML VIAL IV SCH (17:30)
[2021-04-19] MEDS ORDERED: SODIUM BICARB INJ 150 MEQ in STERILE WATER INJ 1,000 ML IV SCH (20:00)
[2021-04-19] MEDS: TAMSULOSIN 0.4 MG CAPSULE PO SCH (20:15)
[2021-04-19 20:29] LABS: Hematocrit 26.5 VOL% (42.0-52.0); Hemoglobin 9.2 GM/DL (14.0-18.0)
[2021-04-20] MEDS: INSULIN REGULAR 100 UNIT/ML SUBCUT SCH ×4 (01:16→17:22)
[2021-04-20] MEDS: PIPERACILLIN/TAZOBACTAM 3.375 MG in SODIUM CHLORIDE 0.9% 100 ML IV SCH ×2 (01:28→12:30)
[2021-04-20 03:37] LABS: ABG Base Excess 4.7 MMOL/L (-2.5-2.5); ABG HCO3 28.7 MMOL/L (20-26); ABG Oxygen Saturation 99.1 % (95-100); ABG TCO2 25.9 MMOL/L (23-27)
[2021-04-20 03:45] LABS: Basophils % 0.2 % (0.0-0.8); Hematocrit 27.5 VOL% (42.0-52.0); Hemoglobin 9.4 GM/DL (14.0-18.0); Immature Granulocytes % 1.1 %; Immature Granulocytes Absolute 0.14 #; Lymphocytes # 0.6 10*3/uL (1.4-4.0); Lymphocytes % 4.5 % (21.2-54.2); Mean Corpuscular HGB Conc 34.2 GM/DL (32-36); Mean Corpuscular Volume 92.3 FL (87-102); Mean Platelet Volume 9.5 FL (9.6-12.0); Monocytes % 3.9 % (1.7-12.7); NRBC # 0.36 10*3/uL; Neutrophils % 90.3 % (38.7-73.9); Platelet Count 143 T/CUMM (130-400); Red Blood Count 2.98 MC/CUMM (3.8-5.5); Red Cell Distribution Width 17.3 % (9.3-17.3); White Blood Count 12.8 T/CUMM (4-12)
[2021-04-20] MEDS: MORPHINE 2 MG/1 ML SYRINGE IV PRN ×3 (04:01→22:16)
[2021-04-20 04:11] LABS: Band Neutrophils 3 % (0-10); Lymphocytes 4 % (20-55); Nucleated Red Blood Cells 1 (0-5); Platelet Estimate Normal; Segmented Neutrophils 93 % (50-85); Total Cells Counted 100
[2021-04-20 05:26] LABS: Albumin 2.4 G/DL (3.4-5.0); Bilirubin,Total 5.2 MG/DL (0.20-1.00); Osmolality,Calculated 300.3 MOS/KG (273-304); Potassium 4.9 MMOL/L (3.5-5.1); Total Protein 4.8 G/DL (6.4-8.2)
[2021-04-20 05:29] LABS: Calcium 5.6 MG/DL (8.5-10.1)
[2021-04-20] MEDS ORDERED: CALCIUM GLUCONATE 2,000 MG in SODIUM CHLORIDE 0.9% 100 ML IV ONE (05:40)
[2021-04-20] MEDS: NOREPINEPHRINE 16 MG in SODIUM CHLORIDE 0.9% 234 ML IV PRN ×2 (07:45→14:36)
[2021-04-20] MEDS: ASPIRIN EC 81 MG TABLET PO SCH (08:15)
[2021-04-20] MEDS: TICAGRELOR 90 MG TABLET PO SCH ×2 (08:16→20:34)
[2021-04-20] MEDS: PANTOPRAZOLE 40 MG VIAL IV SCH ×2 (08:21→20:34)
[2021-04-20] MEDS ORDERED: SODIUM BICARBONATE 50 MEQ/50 ML VIAL IV ONE (12:09)
[2021-04-20 12:14] LABS: ABG Base Excess 2.7 MMOL/L (-2.5-2.5); ABG HCO3 26.9 MMOL/L (20-26); ABG Oxygen Saturation 99.1 % (95-100); ABG PCO2 37.6 MM HG (35-48); ABG PH 7.457 (7.35-7.45); ABG TCO2 24.3 MMOL/L (23-27)
[2021-04-20] MEDS ORDERED: CALCIUM CHLORIDE 1,000 MG/10 ML SYRINGE IV ONE (12:17)
[2021-04-20] MEDS ORDERED: DEXMEDETOMIDINE 200 MCG in SODIUM CHLORIDE 0.9% 48 ML IV PRN (18:35)
[2021-04-20] MEDS: CALCIUM (CARBONATE)/VITAMIN D 600 MG-400 UNIT TABLET PO SCH (20:33)
[2021-04-20] MEDS: TAMSULOSIN 0.4 MG CAPSULE PO SCH (20:34)
[2021-04-21] MEDS: INSULIN REGULAR 100 UNIT/ML SUBCUT SCH ×4 (00:39→17:54)
[2021-04-21] MEDS: PIPERACILLIN/TAZOBACTAM 3.375 MG in SODIUM CHLORIDE 0.9% 100 ML IV SCH ×2 (01:36→12:33)
[2021-04-21] MEDS: NOREPINEPHRINE 16 MG in SODIUM CHLORIDE 0.9% 234 ML IV PRN ×2 (01:46→12:36)
[2021-04-21] MEDS ORDERED: DEXMEDETOMIDINE 400 MCG in SODIUM CHLORIDE 0.9% 96 ML IV PRN (03:00)
[2021-04-21 04:07] LABS: ABG Base Excess 1.1 MMOL/L (-2.5-2.5); ABG Oxygen Saturation 97.3 % (95-100); ABG PCO2 31.5 MM HG (35-48); ABG PH 7.499 (7.35-7.45); ABG PO2 107.5 MM HG (80-95); ABG TCO2 24.9 MMOL/L (23-27)
[2021-04-21 04:21] LABS: Basophils % 0.3 % (0.0-0.8); Eosinophils % 0.1 % (0.00-10.9); Hemoglobin 9.5 GM/DL (14.0-18.0); Immature Granulocytes % 1.8 %; Immature Granulocytes Absolute 0.24 #; Lymphocytes # 0.6 10*3/uL (1.4-4.0); Lymphocytes % 4.5 % (21.2-54.2); Mean Corpuscular HGB Conc 32.8 GM/DL (32-36); Mean Corpuscular Volume 93.9 FL (87-102); Mean Platelet Volume 9.6 FL (9.6-12.0); Monocytes % 5.6 % (1.7-12.7); NRBC # 0.37 10*3/uL; Neutrophils % 87.7 % (38.7-73.9); Platelet Count 143 T/CUMM (130-400); Red Blood Count 3.09 MC/CUMM (3.8-5.5); Red Cell Distribution Width 17.1 % (9.3-17.3); White Blood Count 13.4 T/CUMM (4-12)
[2021-04-21 04:42] LABS: Band Neutrophils 1 % (0-10); Lymphocytes 3 % (20-55); Microcytosis 1+; Platelet Estimate Adequate; Segmented Neutrophils 93 % (50-85); Total Cells Counted 100
[2021-04-21 05:07] LABS: Albumin 2.5 G/DL (3.4-5.0); Calcium 6.1 MG/DL (8.5-10.1); Osmolality,Calculated 297.5 MOS/KG (273-304); Potassium 5.5 MMOL/L (3.5-5.1); Total Protein 5.1 G/DL (6.4-8.2)
[2021-04-21] MEDS: ASPIRIN EC 81 MG TABLET PO SCH (09:33)
[2021-04-21] MEDS: TICAGRELOR 90 MG TABLET PO SCH ×2 (09:33→21:44)
[2021-04-21] MEDS: CALCIUM (CARBONATE)/VITAMIN D 600 MG-400 UNIT TABLET PO SCH ×2 (09:34→21:44)
[2021-04-21] MEDS: PANTOPRAZOLE 40 MG VIAL IV SCH ×2 (09:34→21:45)
[2021-04-21] MEDS: ALBUMIN 25% 25 GM/100 ML VIAL IV SCH ×2 (10:03→17:54)
[2021-04-21] MEDS: HYDROCORTISONE 100 MG VIAL IV SCH ×2 (10:49→17:54)
[2021-04-21] MEDS: MORPHINE 2 MG/1 ML SYRINGE IV PRN (11:22)
[2021-04-21] MEDS ORDERED: LORazepam 2 MG/1 ML VIAL IV PRN (13:06)
[2021-04-21 13:44] LABS: Basophils % 0.2 % (0.0-0.8); Eosinophils % 0.1 % (0.00-10.9); Hematocrit 27.2 VOL% (42.0-52.0); Immature Granulocytes % 1.3 %; Immature Granulocytes Absolute 0.16 #; Lymphocytes # 0.4 10*3/uL (1.4-4.0); Lymphocytes % 2.8 % (21.2-54.2); Mean Corpuscular HGB Conc 33.1 GM/DL (32-36); Mean Corpuscular Volume 93.8 FL (87-102); Mean Platelet Volume 9.5 FL (9.6-12.0); Monocytes % 4.2 % (1.7-12.7); Neutrophils % 91.4 % (38.7-73.9); Platelet Count 110 T/CUMM (130-400); White Blood Count 12.8 T/CUMM (4-12)
[2021-04-21 13:45] LABS: ABG Base Excess 0.1 MMOL/L (-2.5-2.5); ABG HCO3 23.5 MMOL/L (20-26); ABG Oxygen Saturation 98.9 % (95-100); ABG PCO2 33.3 MM HG (35-48); ABG PH 7.467 (7.35-7.45); ABG PO2 374.2 MM HG (80-95); ABG TCO2 24.6 MMOL/L (23-27); Glucose Heart Surgery 148 MG/DL (74-106); Hemoglobin Heart Surgery 9.3 G/DL (14.0-18.0); Potassium Heart/CVR 5.8 MMOL/L (3.5-5.1)
[2021-04-21] MEDS ORDERED: SODIUM POLYSTYRENE SULFATE 15 GM/60 ML BOTTLE PO STA (14:01)
[2021-04-21 14:10] LABS: Band Neutrophils 3 % (0-10); Lymphocytes 1 % (20-55); Nucleated Red Blood Cells 4 (0-5); Segmented Neutrophils 91 % (50-85); Total Cells Counted 100
[2021-04-21 14:11] LABS: Polychromasia Slight
[2021-04-21 14:12] LABS: Platelet Estimate Adequate
[2021-04-21 14:19] LABS: Albumin 2.7 G/DL (3.4-5.0); Bilirubin,Total 6.6 MG/DL (0.20-1.00); Osmolality,Calculated 306.3 MOS/KG (273-304); Potassium 5.9 MMOL/L (3.5-5.1); Total Protein 5.2 G/DL (6.4-8.2)
[2021-04-21] MEDS: MIDAZOLAM 100 MG in SODIUM CHLORIDE 0.9% 80 ML IV PRN (14:45)
[2021-04-21] MEDS ORDERED: PHENYLEPHRINE INJ 160 MG in SODIUM CHLORIDE 0.9% 234 ML IV PRN (15:00)
[2021-04-21] MEDS ORDERED: CALCIUM GLUCONATE 2,000 MG in SODIUM CHLORIDE 0.9% 100 ML IV ONE (16:00)
[2021-04-21 21:24] LABS: INR 1.7; PT Patient Result 18.2 SECS (10.5-12.0)
[2021-04-21 21:28] LABS: Calcium 7.2 MG/DL (8.5-10.1); Osmolality,Calculated 294.3 MOS/KG (273-304); Potassium 4.8 MMOL/L (3.5-5.1)
[2021-04-21] MEDS: TAMSULOSIN 0.4 MG CAPSULE PO SCH (21:44)
[2021-04-22] MEDS: INSULIN REGULAR 100 UNIT/ML SUBCUT SCH ×4 (00:01→17:49)
[2021-04-22] MEDS: PIPERACILLIN/TAZOBACTAM 3.375 MG in SODIUM CHLORIDE 0.9% 100 ML IV SCH (00:08)
[2021-04-22] MEDS: NOREPINEPHRINE 16 MG in SODIUM CHLORIDE 0.9% 234 ML IV PRN (01:30)
[2021-04-22] MEDS: HYDROCORTISONE 100 MG VIAL IV SCH ×3 (02:13→17:51)
[2021-04-22] MEDS: ALBUMIN 25% 25 GM/100 ML VIAL IV SCH (02:16)
[2021-04-22 04:43] LABS: ABG Base Excess -0.1 MMOL/L (-2.5-2.5); ABG HCO3 24.4 MMOL/L (20-26); ABG Oxygen Saturation 96.8 % (95-100); ABG PCO2 32.9 MM HG (35-48); ABG PO2 86.5 MM HG (80-95); ABG TCO2 21.8 MMOL/L (23-27)
[2021-04-22 04:53] LABS: Basophils % 0.1 % (0.0-0.8); Hematocrit 24.4 VOL% (42.0-52.0); Immature Granulocytes Absolute 0.12 #; Lymphocytes # 0.4 10*3/uL (1.4-4.0); Lymphocytes % 3.5 % (21.2-54.2); Mean Corpuscular HGB Conc 32.8 GM/DL (32-36); Mean Corpuscular Volume 95.3 FL (87-102); Mean Platelet Volume 9.8 FL (9.6-12.0); Monocytes % 4.4 % (1.7-12.7); NRBC # 0.16 10*3/uL; Red Blood Count 2.56 MC/CUMM (3.8-5.5); Red Cell Distribution Width 16.6 % (9.3-17.3); White Blood Count 12.2 T/CUMM (4-12)
[2021-04-22 05:04] LABS: INR 1.6; PT Patient Result 17.6 SECS (10.5-12.0)
[2021-04-22 05:32] LABS: Albumin 2.9 G/DL (3.4-5.0); Bilirubin,Total 6.7 MG/DL (0.20-1.00); Calcium 6.6 MG/DL (8.5-10.1); Osmolality,Calculated 299.3 MOS/KG (273-304)
[2021-04-22 05:46] LABS: Platelet Count 80 T/CUMM (130-400)
[2021-04-22 05:49] LABS: Band Neutrophils 1 % (0-10); Lymphocytes 2 % (20-55); Nucleated Red Blood Cells 1 (0-5); Platelet Estimate Decreased; Segmented Neutrophils 93 % (50-85); Total Cells Counted 100
[2021-04-22 05:50] LABS: Hypochromasia 1+; Microcytosis 1+
[2021-04-22] MEDS: PANTOPRAZOLE 40 MG VIAL IV SCH (09:25)
[2021-04-22] MEDS: TICAGRELOR 90 MG TABLET PO SCH ×2 (09:25→21:47)
[2021-04-22] MEDS: ASPIRIN EC 81 MG TABLET PO SCH (09:25)
[2021-04-22] MEDS: CALCIUM (CARBONATE)/VITAMIN D 600 MG-400 UNIT TABLET PO SCH ×2 (09:25→21:47)
[2021-04-22] MEDS ORDERED: SODIUM CHLORIDE 0.9% 1,000 ML IV PRN (10:30)
[2021-04-22] MEDS ORDERED: CALCIUM GLUCONATE 1,000 MG in SODIUM CHLORIDE 0.9% 100 ML IV ONE (11:00)
[2021-04-22] MEDS: cefTRIAXone 1,000 MG in SODIUM CHLORIDE 0.9% 100 ML IV SCH (17:10)
[2021-04-22] MEDS: TAMSULOSIN 0.4 MG CAPSULE PO SCH (21:47)
[2021-04-23 00:11] VITALS: BP 150/64
[2021-04-23] MEDS: INSULIN REGULAR 100 UNIT/ML SUBCUT SCH ×5 (01:11→23:57)
[2021-04-23] MEDS: HYDROCORTISONE 100 MG VIAL IV SCH ×2 (01:13→14:50)
[2021-04-23 05:12] LABS: ABG HCO3 23.5 MMOL/L (20-26); ABG Oxygen Saturation 93.5 % (95-100); ABG PCO2 32.5 MM HG (35-48); ABG PH 7.447 (7.35-7.45); ABG PO2 72.9 MM HG (80-95); ABG TCO2 20.4 MMOL/L (23-27); Basophils % 0.1 % (0.0-0.8); Hematocrit 28.9 VOL% (42.0-52.0); Hemoglobin 9.5 GM/DL (14.0-18.0); Immature Granulocytes % 1.2 %; Immature Granulocytes Absolute 0.11 #; Lymphocytes # 0.3 10*3/uL (1.4-4.0); Lymphocytes % 3.1 % (21.2-54.2); Mean Corpuscular HGB Conc 32.9 GM/DL (32-36); Mean Corpuscular Volume 92.3 FL (87-102); Mean Platelet Volume 10.7 FL (9.6-12.0); Monocytes % 3.8 % (1.7-12.7); NRBC # 0.15 10*3/uL; Neutrophils % 91.8 % (38.7-73.9); Platelet Count 72 T/CUMM (130-400); Red Blood Count 3.13 MC/CUMM (3.8-5.5); Red Cell Distribution Width 16.2 % (9.3-17.3); White Blood Count 9.2 T/CUMM (4-12)
[2021-04-23 05:15] LABS: INR 1.5; PT Patient Result 16.3 SECS (10.5-12.0)
[2021-04-23 05:27] LABS: Albumin 2.5 G/DL (3.4-5.0); Bilirubin,Total 6.6 MG/DL (0.20-1.00); Calcium 6.6 MG/DL (8.5-10.1); Osmolality,Calculated 310.7 MOS/KG (273-304); Potassium 5.2 MMOL/L (3.5-5.1); Total Protein 4.8 G/DL (6.4-8.2)
[2021-04-23 05:34] LABS: Anisocytosis 2+; Band Neutrophils 13 % (0-10); Lymphocytes 4 % (20-55); Macrocytosis 1+; Metamyelocytes 1 %; Nucleated Red Blood Cells 2 (0-5); Platelet Estimate Decreased; Polychromasia Slight; Segmented Neutrophils 81 % (50-85); Total Cells Counted 100
[2021-04-23 05:35] LABS: Gamma Glutamyl Transpeptidase 72 U/L (5-85)
[2021-04-23] MEDS: MIDAZOLAM 100 MG in SODIUM CHLORIDE 0.9% 80 ML IV PRN (06:00)
[2021-04-23] MEDS: ASPIRIN EC 81 MG TABLET PO SCH (09:42)
[2021-04-23] MEDS: CALCIUM (CARBONATE)/VITAMIN D 600 MG-400 UNIT TABLET PO SCH ×2 (09:42→20:02)
[2021-04-23] MEDS: TICAGRELOR 90 MG TABLET PO SCH ×2 (09:42→20:02)
[2021-04-23] MEDS: cefTRIAXone 1,000 MG in SODIUM CHLORIDE 0.9% 100 ML IV SCH (11:21)
[2021-04-23 11:34] LABS: Basophils % 0.1 % (0.0-0.8); Hematocrit 32.2 VOL% (42.0-52.0); Hemoglobin 10.7 GM/DL (14.0-18.0); Immature Granulocytes % 1.3 %; Immature Granulocytes Absolute 0.19 #; Lymphocytes # 0.4 10*3/uL (1.4-4.0); Lymphocytes % 2.8 % (21.2-54.2); Mean Corpuscular HGB Conc 33.2 GM/DL (32-36); Mean Platelet Volume 10.4 FL (9.6-12.0); NRBC # 0.37 10*3/uL; Neutrophils % 90.8 % (38.7-73.9); Red Cell Distribution Width 16.4 % (9.3-17.3); White Blood Count 14.8 T/CUMM (4-12)
[2021-04-23 11:35] LABS: Platelet Count 101 T/CUMM (130-400)
[2021-04-23 12:52] LABS: Band Neutrophils 2 % (0-10); Lymphocytes 3 % (20-55); Nucleated Red Blood Cells 3 (0-5); Segmented Neutrophils 90 % (50-85); Total Cells Counted 100
[2021-04-23 12:53] LABS: Platelet Estimate Adequate; Polychromasia Slight
[2021-04-23 13:49] LABS: ABG Base Excess 0.4 MMOL/L (-2.5-2.5); ABG HCO3 22.9 MMOL/L (20-26); ABG Oxygen Saturation 93.8 % (95-100); ABG PCO2 29.7 MM HG (35-48); ABG PH 7.505 (7.35-7.45); ABG PO2 71.8 MM HG (80-95); ABG TCO2 23.8 MMOL/L (23-27)
[2021-04-23] MEDS: TAMSULOSIN 0.4 MG CAPSULE PO SCH (20:53)
[2021-04-24] MEDS: HYDROCORTISONE 100 MG VIAL IV SCH ×3 (02:37→21:02)
[2021-04-24 04:29] LABS: ABG HCO3 22.6 MMOL/L (20-26); ABG Oxygen Saturation 96.9 % (95-100); ABG PCO2 29.9 MM HG (35-48); ABG PH 7.497 (7.35-7.45); ABG PO2 98.1 MM HG (80-95); ABG TCO2 23.6 MMOL/L (23-27)
[2021-04-24 04:33] LABS: Basophils % 0.1 % (0.0-0.8); Eosinophils % 0.1 % (0.00-10.9); Hematocrit 30.8 VOL% (42.0-52.0); Hemoglobin 10.2 GM/DL (14.0-18.0); Immature Granulocytes % 1.5 %; Lymphocytes # 0.4 10*3/uL (1.4-4.0); Lymphocytes % 2.7 % (21.2-54.2); Mean Corpuscular HGB Conc 33.1 GM/DL (32-36); Mean Corpuscular Volume 92.8 FL (87-102); Mean Platelet Volume 10.8 FL (9.6-12.0); Monocytes % 6.5 % (1.7-12.7); NRBC # 0.25 10*3/uL; Neutrophils % 89.1 % (38.7-73.9); Platelet Count 89 T/CUMM (130-400); Red Blood Count 3.32 MC/CUMM (3.8-5.5); Red Cell Distribution Width 16.5 % (9.3-17.3); White Blood Count 13.1 T/CUMM (4-12)
[2021-04-24 04:39] LABS: INR 1.4; PT Patient Result 14.9 SECS (10.5-12.0)
[2021-04-24 04:51] LABS: Albumin 2.5 G/DL (3.4-5.0); Osmolality,Calculated 316.3 MOS/KG (273-304); Potassium 4.5 MMOL/L (3.5-5.1); Total Protein 5.2 G/DL (6.4-8.2)
[2021-04-24 05:04] LABS: Lymphocytes 2 % (20-55); Platelet Estimate Decreased; Segmented Neutrophils 93 % (50-85); Total Cells Counted 100
[2021-04-24] MEDS: INSULIN REGULAR 100 UNIT/ML SUBCUT SCH ×3 (07:00→18:28)
[2021-04-24] MEDS: ASPIRIN EC 81 MG TABLET PO SCH (09:18)
[2021-04-24] MEDS: CALCIUM (CARBONATE)/VITAMIN D 600 MG-400 UNIT TABLET PO SCH ×2 (09:18→21:04)
[2021-04-24] MEDS: TICAGRELOR 90 MG TABLET PO SCH ×2 (09:18→21:04)
[2021-04-24] MEDS: FAMOTIDINE 20 MG/2 ML VIAL IV SCH (10:20)
[2021-04-24] MEDS: FLUCONAZOLE INJ 200 MG/100 ML PREMIX IV SCH (10:22)
[2021-04-24] MEDS: cefTRIAXone 1,000 MG in SODIUM CHLORIDE 0.9% 100 ML IV SCH (10:24)
[2021-04-24] MEDS: MORPHINE 2 MG/1 ML SYRINGE IV PRN ×2 (10:27→23:51)
[2021-04-24] MEDS: hydrALAZINE 20 MG/1 ML VIAL IV PRN ×2 (15:07→22:10)
[2021-04-24] MEDS ORDERED: MORPHINE 2 MG/1 ML SYRINGE IV ONE (15:47)
[2021-04-24] MEDS: TAMSULOSIN 0.4 MG CAPSULE PO SCH (21:04)
[2021-04-25] MEDS: INSULIN REGULAR 100 UNIT/ML SUBCUT SCH ×5 (00:25→21:02)
[2021-04-25 04:25] LABS: ABG Base Excess -0.6 MMOL/L (-2.5-2.5); ABG HCO3 21.8 MMOL/L (20-26); ABG Oxygen Saturation 96.4 % (95-100); ABG PCO2 28.6 MM HG (35-48); ABG PO2 88.2 MM HG (80-95); ABG TCO2 22.7 MMOL/L (23-27)
[2021-04-25 04:43] LABS: Basophils % 0.2 % (0.0-0.8); Eosinophils % 0.1 % (0.00-10.9); Hematocrit 31.9 VOL% (42.0-52.0); Hemoglobin 10.6 GM/DL (14.0-18.0); Immature Granulocytes % 3.6 %; Lymphocytes # 0.5 10*3/uL (1.4-4.0); Lymphocytes % 3.2 % (21.2-54.2); Mean Corpuscular HGB Conc 33.2 GM/DL (32-36); Mean Corpuscular Volume 93.3 FL (87-102); Mean Platelet Volume 11.4 FL (9.6-12.0); Monocytes % 8.5 % (1.7-12.7); NRBC # 0.23 10*3/uL; Neutrophils % 84.4 % (38.7-73.9); Platelet Count 100 T/CUMM (130-400); Red Blood Count 3.42 MC/CUMM (3.8-5.5); Red Cell Distribution Width 17.3 % (9.3-17.3); White Blood Count 16.5 T/CUMM (4-12)
[2021-04-25 04:48] LABS: INR 1.3; PT Patient Result 14.3 SECS (10.5-12.0)
[2021-04-25 04:57] LABS: Albumin 2.5 G/DL (3.4-5.0); Bilirubin,Total 6.2 MG/DL (0.20-1.00); Osmolality,Calculated 322.7 MOS/KG (273-304); Potassium 4.7 MMOL/L (3.5-5.1); Total Protein 5.4 G/DL (6.4-8.2)
[2021-04-25 05:09] LABS: Hypochromasia 1+; Lymphocytes 2 % (20-55); Microcytosis 1+; Nucleated Red Blood Cells 2 (0-5); Platelet Estimate Decreased; Segmented Neutrophils 91 % (50-85); Total Cells Counted 100
[2021-04-25] MEDS: HYDROCORTISONE 100 MG VIAL IV SCH ×2 (09:07→20:58)
[2021-04-25] MEDS: FAMOTIDINE 20 MG/2 ML VIAL IV SCH (09:07)
[2021-04-25] MEDS: ASPIRIN EC 81 MG TABLET PO SCH (09:08)
[2021-04-25] MEDS: TICAGRELOR 90 MG TABLET PO SCH ×2 (09:08→21:03)
[2021-04-25] MEDS: carvediloL 3.125 MG TABLET PO SCH ×2 (09:08→21:03)
[2021-04-25] MEDS: CALCIUM (CARBONATE)/VITAMIN D 600 MG-400 UNIT TABLET PO SCH (09:09)
[2021-04-25] MEDS: FLUCONAZOLE INJ 200 MG/100 ML PREMIX IV SCH (09:11)
[2021-04-25] MEDS ORDERED: INSULIN REGULAR 100 UNIT/ML SUBCUT SCH (10:00)
[2021-04-25] MEDS: METOCLOPRAMIDE 10 MG/2 ML VIAL IV SCH ×3 (12:01→23:58)
[2021-04-25] MEDS: TAMSULOSIN 0.4 MG CAPSULE PO SCH (21:03)
[2021-04-26] MEDS: MORPHINE 2 MG/1 ML SYRINGE IV PRN ×2 (00:42→17:49)
[2021-04-26 03:45] LABS: Basophils % 0.1 % (0.0-0.8); Eosinophils # 0.1 10*3/uL (0.0-0.87); Eosinophils % 0.5 % (0.00-10.9); Hematocrit 29.7 VOL% (42.0-52.0); Hemoglobin 9.5 GM/DL (14.0-18.0); Immature Granulocytes % 2.4 %; Lymphocytes # 0.4 10*3/uL (1.4-4.0); Lymphocytes % 3.3 % (21.2-54.2); Mean Corpuscular Volume 95.8 FL (87-102); Mean Platelet Volume 11.2 FL (9.6-12.0); Monocytes % 7.5 % (1.7-12.7); NRBC # 0.07 10*3/uL; Neutrophils % 86.2 % (38.7-73.9); Platelet Count 99 T/CUMM (130-400); Red Cell Distribution Width 18.9 % (9.3-17.3); White Blood Count 12.3 T/CUMM (4-12)
[2021-04-26 03:56] LABS: INR 1.2; PT Patient Result 13.5 SECS (10.5-12.0)
[2021-04-26 04:09] LABS: Allen Test Positive; Pt O2 Delivery Device Ventilator
[2021-04-26 04:11] LABS: ABG Base Excess -1.2 MMOL/L (-2.5-2.5); ABG HCO3 21.4 MMOL/L (20-26); ABG Oxygen Saturation 97.8 % (95-100); ABG PCO2 28.7 MM HG (35-48); ABG PH 7.491 (7.35-7.45); ABG TCO2 22.3 MMOL/L (23-27)
[2021-04-26 04:18] LABS: Albumin 2.2 G/DL (3.4-5.0); Bilirubin,Total 5.4 MG/DL (0.20-1.00); Calcium 7.5 MG/DL (8.5-10.1); Osmolality,Calculated 332.4 MOS/KG (273-304); Potassium 4.7 MMOL/L (3.5-5.1); Total Protein 5.2 G/DL (6.4-8.2)
[2021-04-26 04:23] LABS: Lymphocytes 6 % (20-55); Platelet Estimate Decreased; Segmented Neutrophils 88 % (50-85); Total Cells Counted 100
[2021-04-26 04:24] LABS: Hypochromasia Slight; Microcytosis Slight
[2021-04-26] MEDS: INSULIN REGULAR 100 UNIT/ML SUBCUT SCH ×6 (04:50→20:48)
[2021-04-26] MEDS: METOCLOPRAMIDE 10 MG/2 ML VIAL IV SCH ×3 (05:54→17:48)
[2021-04-26] MEDS: ASPIRIN EC 81 MG TABLET PO SCH (08:12)
[2021-04-26] MEDS: CHOLECALCIFEROL 1,000 UNIT TABLET PO SCH (08:14)
[2021-04-26] MEDS: HYDROCORTISONE 100 MG VIAL IV SCH ×2 (08:15→20:45)
[2021-04-26] MEDS: TICAGRELOR 90 MG TABLET PO SCH ×2 (08:15→20:48)
[2021-04-26] MEDS: carvediloL 6.25 MG TABLET PO SCH ×2 (08:27→20:48)
[2021-04-26] MEDS: FAMOTIDINE 20 MG/2 ML VIAL IV SCH (08:38)
[2021-04-26] MEDS: FLUCONAZOLE INJ 200 MG/100 ML PREMIX IV SCH (09:49)
[2021-04-26] MEDS: TAMSULOSIN 0.4 MG CAPSULE PO SCH (20:48)
[2021-04-27] MEDS: METOCLOPRAMIDE 10 MG/2 ML VIAL IV SCH ×4 (00:28→17:15)
[2021-04-27] MEDS: INSULIN REGULAR 100 UNIT/ML SUBCUT SCH ×6 (00:32→20:41)
[2021-04-27] MEDS: MORPHINE 2 MG/1 ML SYRINGE IV PRN (00:33)
[2021-04-27 01:19] LABS: ABG Base Excess -1.1 MMOL/L (-2.5-2.5); ABG HCO3 23.5 MMOL/L (20-26); ABG Oxygen Saturation 95.8 % (95-100); ABG PCO2 28.7 MM HG (35-48); ABG PH 7.484 (7.35-7.45); ABG PO2 79.2 MM HG (80-95); ABG TCO2 19.6 MMOL/L (23-27)
[2021-04-27 04:36] LABS: Basophils % 0.1 % (0.0-0.8); Eosinophils % 0.4 % (0.00-10.9); Hematocrit 28.6 VOL% (42.0-52.0); Hemoglobin 9.4 GM/DL (14.0-18.0); Lymphocytes # 0.3 10*3/uL (1.4-4.0); Lymphocytes % 2.7 % (21.2-54.2); Mean Corpuscular HGB Conc 32.9 GM/DL (32-36); Mean Corpuscular Volume 95.7 FL (87-102); Mean Platelet Volume 10.5 FL (9.6-12.0); Monocytes % 7.2 % (1.7-12.7); NRBC # 0.03 10*3/uL; Neutrophils % 87.6 % (38.7-73.9); Platelet Count 87 T/CUMM (130-400); Red Blood Count 2.99 MC/CUMM (3.8-5.5); White Blood Count 9.8 T/CUMM (4-12)
[2021-04-27 04:56] LABS: Albumin 2.1 G/DL (3.4-5.0); Bilirubin,Total 5.2 MG/DL (0.20-1.00); Calcium 7.6 MG/DL (8.5-10.1); Potassium 4.7 MMOL/L (3.5-5.1); Total Protein 5.1 G/DL (6.4-8.2)
[2021-04-27 04:58] LABS: Band Neutrophils 1 % (0-10); Eosinophils 1 % (0-10); Hypochromasia 1+; Lymphocytes 1 % (20-55); Microcytosis 1+; Platelet Estimate Decreased; Segmented Neutrophils 92 % (50-85); Total Cells Counted 100
[2021-04-27] MEDS: TICAGRELOR 90 MG TABLET PO SCH ×2 (08:31→20:42)
[2021-04-27] MEDS: CHOLECALCIFEROL 1,000 UNIT TABLET PO SCH (08:31)
[2021-04-27] MEDS: FAMOTIDINE 20 MG/2 ML VIAL IV SCH (08:31)
[2021-04-27] MEDS: carvediloL 6.25 MG TABLET PO SCH ×2 (08:31→20:42)
[2021-04-27] MEDS: HYDROCORTISONE 100 MG VIAL IV SCH ×2 (08:32→20:40)
[2021-04-27] MEDS: ASPIRIN EC 81 MG TABLET PO SCH (08:33)
[2021-04-27] MEDS: FLUCONAZOLE INJ 200 MG/100 ML PREMIX IV SCH (09:13)
[2021-04-27] MEDS ORDERED: ALBUMIN 5% 12.5 GM/250 ML VIAL IV ONE (10:04)
[2021-04-27] MEDS ORDERED: ALBUMIN 5% 12.5 GM/250 ML VIAL IV PRN (10:25)
[2021-04-27] MEDS: ALBUTEROL 2.5 MG/3 ML NEB RESP TX SCH (14:52)
[2021-04-27] MEDS: TAMSULOSIN 0.4 MG CAPSULE PO SCH (20:42)
[2021-04-28] MEDS: INSULIN REGULAR 100 UNIT/ML SUBCUT SCH ×4 (00:50→11:56)
[2021-04-28] MEDS: METOCLOPRAMIDE 10 MG/2 ML VIAL IV SCH ×3 (00:51→12:52)
[2021-04-28 04:05] LABS: Basophils % 0.1 % (0.0-0.8); Eosinophils % 0.2 % (0.00-10.9); Hematocrit 27.4 VOL% (42.0-52.0); Hemoglobin 8.7 GM/DL (14.0-18.0); Immature Granulocytes % 1.7 %; Immature Granulocytes Absolute 0.15 #; Lymphocytes # 0.2 10*3/uL (1.4-4.0); Lymphocytes % 2.1 % (21.2-54.2); Mean Corpuscular HGB Conc 31.8 GM/DL (32-36); Mean Corpuscular Volume 97.2 FL (87-102); Mean Platelet Volume 10.9 FL (9.6-12.0); Monocytes % 7.6 % (1.7-12.7); NRBC # 0.02 10*3/uL; Neutrophils % 88.3 % (38.7-73.9); Platelet Count 67 T/CUMM (130-400); Red Blood Count 2.82 MC/CUMM (3.8-5.5); White Blood Count 8.6 T/CUMM (4-12)
[2021-04-28 04:22] LABS: Hypochromasia 1+; Lymphocytes 1 % (20-55); Microcytosis 1+; Platelet Estimate Decreased; Segmented Neutrophils 90 % (50-85); Total Cells Counted 100
[2021-04-28 04:25] LABS: Albumin 2.1 G/DL (3.4-5.0); Bilirubin,Total 3.7 MG/DL (0.20-1.00); Calcium 7.3 MG/DL (8.5-10.1); Potassium 4.9 MMOL/L (3.5-5.1); Total Protein 5.1 G/DL (6.4-8.2)
[2021-04-28] MEDS: ALBUTEROL 2.5 MG/3 ML NEB RESP TX SCH ×2 (07:25)
[2021-04-28] MEDS: HYDROCORTISONE 100 MG VIAL IV SCH (08:32)
[2021-04-28] MEDS: TICAGRELOR 90 MG TABLET PO SCH (08:33)
[2021-04-28] MEDS: FAMOTIDINE 20 MG/2 ML VIAL IV SCH (08:33)
[2021-04-28] MEDS: CHOLECALCIFEROL 1,000 UNIT TABLET PO SCH (08:33)
[2021-04-28] MEDS: ASPIRIN EC 81 MG TABLET PO SCH (08:33)
[2021-04-28] MEDS: carvediloL 6.25 MG TABLET PO SCH (08:45)
[2021-04-28] MEDS ORDERED: INFLUENZA VIRUS VACCINE 0.5 ML SYRINGE IM ONE (10:16)
[2021-04-28] MEDS: FLUCONAZOLE INJ 200 MG/100 ML PREMIX IV SCH (10:25)
== END 2021-04-28 13:58 | DRG 246 ==
LOC: N.ED 10:02 → SUATTDRO 11:31 → N.EDINP 11:31 → N.TELEN 12:10 → N.ICU 23:36
PROVIDERS: ADMIT Internal Medicine; ATTEND Internal Medicine

== ENCOUNTER 2021-05-03 20:33 | Inpatient (IN) ==
[2021-05-03] MEDS ORDERED: ALBUTEROL 2.5 MG/3 ML NEB RESP TX PRN (22:24)
[2021-05-03] MEDS ORDERED: ONDANSETRON 4 MG/2 ML VIAL IV PRN (22:32)
[2021-05-03] MEDS ORDERED: DEXTROSE 50% 25 GM/50 ML VIAL IV PRN (23:20)
[2021-05-03] MEDS ORDERED: GLUCAGON 1 MG VIAL IM PRN (23:20)
[2021-05-03 23:26] LABS: Basophils % 0.1 % (0.0-0.8); Hematocrit 28.5 VOL% (42.0-52.0); Hemoglobin 9.2 GM/DL (14.0-18.0); Immature Granulocytes % 1.2 %; Immature Granulocytes Absolute 0.22 #; Lymphocytes # 0.5 10*3/uL (1.4-4.0); Lymphocytes % 2.5 % (21.2-54.2); Mean Corpuscular HGB Conc 32.3 GM/DL (32-36); Mean Corpuscular Volume 99.3 FL (87-102); Mean Platelet Volume 11.2 FL (9.6-12.0); Monocytes % 5.2 % (1.7-12.7); Platelet Count 127 T/CUMM (130-400); Red Blood Count 2.87 MC/CUMM (3.8-5.5); Red Cell Distribution Width 18.4 % (9.3-17.3); White Blood Count 18.6 T/CUMM (4-12)
[2021-05-03] MEDS: ACETAMINOPHEN 325 MG TABLET PO PRN (23:30)
[2021-05-03 23:44] LABS: INR 1.1; PT Patient Result 11.9 SECS (10.5-12.0)
[2021-05-03 23:49] LABS: CKMB % 2.9 %
[2021-05-03 23:53] LABS: Bilirubin,Total 1.5 MG/DL (0.20-1.00); Calcium 7.4 MG/DL (8.5-10.1); Total Protein 5.2 G/DL (6.4-8.2)
[2021-05-03 23:55] LABS: Potassium 6.4 MMOL/L (3.5-5.1)
[2021-05-04] MEDS ORDERED: INSULIN REGULAR 10 UNIT, CALCIUM GLUCONATE 1,000 MG in DEXTROSE 10% 250 ML IV ONE (00:01)
[2021-05-04] MEDS ORDERED: SODIUM POLYSTYRENE SULFATE 15 GM/60 ML BOTTLE PO ONE (00:01)
[2021-05-04 01:03] LABS: Lymphocytes 7 % (20-55); Platelet Estimate Normal; Segmented Neutrophils 91 % (50-85); Total Cells Counted 100
[2021-05-04 01:04] LABS: Macrocytosis Slight; Polychromasia Slight
[2021-05-04 01:06] LABS: Anisocytosis Slight; Ovalocytes Slight
[2021-05-04 01:18] LABS: ABG HCO3 19.7 MMOL/L (20-26); ABG Oxygen Saturation 55.6 % (95-100); ABG PCO2 45.2 MM HG (35-48); ABG PH 7.286 (7.35-7.45); ABG TCO2 20.2 MMOL/L (23-27)
[2021-05-04 01:19] LABS: ABG PO2 37.3 MM HG (80-95)
[2021-05-04 01:38] LABS: ABG HCO3 19.3 MMOL/L (20-26); ABG Oxygen Saturation 98.4 % (95-100); ABG PCO2 32.8 MM HG (35-48); ABG PH 7.387 (7.35-7.45); ABG PO2 182.5 MM HG (80-95); ABG TCO2 20.3 MMOL/L (23-27)
[2021-05-04 02:39] LABS: Basophils % 0.1 % (0.0-0.8); Eosinophils % 0.1 % (0.00-10.9); Hematocrit 28.1 VOL% (42.0-52.0); Hemoglobin 8.9 GM/DL (14.0-18.0); Immature Granulocytes % 0.9 %; Immature Granulocytes Absolute 0.16 #; Lymphocytes # 0.6 10*3/uL (1.4-4.0); Lymphocytes % 3.4 % (21.2-54.2); Mean Corpuscular HGB Conc 31.7 GM/DL (32-36); Mean Corpuscular Volume 98.9 FL (87-102); Mean Platelet Volume 11.6 FL (9.6-12.0); Monocytes % 6.9 % (1.7-12.7); Neutrophils % 88.6 % (38.7-73.9); Platelet Count 129 T/CUMM (130-400); Red Blood Count 2.84 MC/CUMM (3.8-5.5); Red Cell Distribution Width 18.3 % (9.3-17.3); White Blood Count 16.9 T/CUMM (4-12)
[2021-05-04 03:05] LABS: Hypochromasia Slight; Lymphocytes 1 % (20-55); Platelet Estimate Normal; Segmented Neutrophils 92 % (50-85); Total Cells Counted 100
[2021-05-04 04:28] LABS: Bilirubin,Urine Negative (Negative); Blood, Urine Large mg/dL (Negative); Glucose,Urine (UA) Negative (Negative); Hyaline Casts,Urine 2 /LPF (0-3); Ketones,Urine Negative (Negative); Mucus,Urine Occasional /LPF (Occasional); Nitrite,Urine Negative (Negative); Protein,Urine 30 MG/DL; RBC,Urine 282 /HPF (0-4); Urine Appearance Slightly Hazy (Clear); Urine Color Yellow (Yellow); Urine Specific Gravity 1.012 (1.001-1.035); Urine Urobilinogen < 2.0 EU/DL (0.2-1.0)
[2021-05-04 06:31] LABS: Albumin 2.1 G/DL (3.4-5.0); Bilirubin,Total 1.8 MG/DL (0.20-1.00); Calcium 7.9 MG/DL (8.5-10.1); Osmolality,Calculated 333.4 MOS/KG (273-304); Potassium 5.8 MMOL/L (3.5-5.1); Total Protein 5.2 G/DL (6.4-8.2)
[2021-05-04] MEDS ORDERED: MORPHINE 2 MG/1 ML SYRINGE IV PRN (07:28)
[2021-05-04] MEDS ORDERED: NITROGLYCERIN SL 0.4 MG TABLET SL PRN (07:28)
[2021-05-04] MEDS ORDERED: GLUCAGON 1 MG VIAL IM PRN (07:28)
[2021-05-04] MEDS ORDERED: HEPARIN 10,000 UNIT/10 ML VIAL IV SCH (07:30)
[2021-05-04] MEDS: INSULIN LISPRO 100 UNIT/ML SUBCUT SCH ×4 (07:38→21:55)
[2021-05-04 08:30] LABS: Thyroid Stimulating Hormone 6.14 uIU/ml (0.358-3.74)
[2021-05-04] MEDS: cefTRIAXone 1,000 MG in SODIUM CHLORIDE 0.9% 100 ML IV SCH (09:14)
[2021-05-04] MEDS: ASPIRIN EC 81 MG TABLET PO SCH (09:14)
[2021-05-04] MEDS: CHOLECALCIFEROL 1,000 UNIT TABLET PO SCH (09:14)
[2021-05-04] MEDS: TICAGRELOR 90 MG TABLET PO SCH ×2 (09:15→21:55)
[2021-05-04] MEDS: LACTULOSE 20 GM/30 ML UDCUP PO SCH ×3 (09:57→22:09)
[2021-05-04] MEDS: LEVOTHYROXINE 25 MCG TABLET PO SCH (09:59)
[2021-05-04] MEDS: FLUCONAZOLE INJ 200 MG/100 ML PREMIX IV SCH (11:15)
[2021-05-04] MEDS: ALBUTEROL 2.5 MG/3 ML NEB RESP TX SCH ×2 (15:23→23:30)
[2021-05-04] MEDS: DESITIN 4OZ/NYSTATIN 15 GRAM MIXTURE PASTE TOP SCH ×2 (16:03→21:55)
[2021-05-04] MEDS ORDERED: SALIVA SUBSTITUTE SPRAY 60 ML CAN SWISH/SWAL PRN (18:40)
[2021-05-04] MEDS ORDERED: ATORVASTATIN 40 MG TABLET PO SCH (21:00)
[2021-05-04] MEDS: TAMSULOSIN 0.4 MG CAPSULE PO SCH (21:55)
[2021-05-04] MEDS: FAMOTIDINE 20 MG TABLET PO SCH (21:55)
[2021-05-05 04:31] LABS: Basophils % 0.1 % (0.0-0.8); Eosinophils % 0.4 % (0.00-10.9); Hemoglobin 7.2 GM/DL (14.0-18.0); Immature Granulocytes % 0.8 %; Immature Granulocytes Absolute 0.08 #; Lymphocytes # 0.3 10*3/uL (1.4-4.0); Lymphocytes % 3.2 % (21.2-54.2); Mean Corpuscular HGB Conc 31.3 GM/DL (32-36); Mean Corpuscular Volume 100.9 FL (87-102); Mean Platelet Volume 11.5 FL (9.6-12.0); Monocytes % 6.9 % (1.7-12.7); Neutrophils % 88.6 % (38.7-73.9); Red Blood Count 2.28 MC/CUMM (3.8-5.5); Red Cell Distribution Width 18.4 % (9.3-17.3)
[2021-05-05 04:38] LABS: Platelet Count 94 T/CUMM (130-400)
[2021-05-05 04:39] LABS: White Blood Count 10.3 T/CUMM (4-12)
[2021-05-05 04:49] LABS: Albumin 1.8 G/DL (3.4-5.0); Bilirubin,Total 1.7 MG/DL (0.20-1.00); Calcium 7.3 MG/DL (8.5-10.1); Osmolality,Calculated 344.3 MOS/KG (273-304); Potassium 5.2 MMOL/L (3.5-5.1); Total Protein 4.7 G/DL (6.4-8.2)
[2021-05-05 04:59] LABS: Hypochromasia Slight; Lymphocytes 4 % (20-55); Microcytosis Slight; Platelet Estimate Decreased; Segmented Neutrophils 85 % (50-85); Total Cells Counted 100
[2021-05-05] MEDS: LEVOTHYROXINE 25 MCG TABLET PO SCH (07:11)
[2021-05-05] MEDS: ALBUTEROL 2.5 MG/3 ML NEB RESP TX SCH ×2 (07:56→15:05)
[2021-05-05] MEDS: INSULIN LISPRO 100 UNIT/ML SUBCUT SCH ×3 (09:01→17:38)
[2021-05-05] MEDS: cefTRIAXone 1,000 MG in SODIUM CHLORIDE 0.9% 100 ML IV SCH (09:01)
[2021-05-05] MEDS: CHOLECALCIFEROL 1,000 UNIT TABLET PO SCH (09:02)
[2021-05-05] MEDS: LACTULOSE 20 GM/30 ML UDCUP PO SCH ×2 (09:03→21:02)
[2021-05-05] MEDS: TICAGRELOR 90 MG TABLET PO SCH ×2 (09:03→21:02)
[2021-05-05] MEDS: FAMOTIDINE 20 MG TABLET PO SCH ×2 (09:03→21:02)
[2021-05-05] MEDS: ASPIRIN EC 81 MG TABLET PO SCH (09:03)
[2021-05-05] MEDS: DESITIN 4OZ/NYSTATIN 15 GRAM MIXTURE PASTE TOP SCH ×2 (09:04→21:02)
[2021-05-05] MEDS: FLUCONAZOLE INJ 200 MG/100 ML PREMIX IV SCH ×2 (10:52→12:50)
[2021-05-05] MEDS ORDERED: COLCHICINE 0.6 MG CAPSULE PO ONE (16:30)
[2021-05-05] MEDS ORDERED: FUROSEMIDE 40 MG/4 ML VIAL IV ONE (16:32)
[2021-05-05] MEDS ORDERED: COLCHICINE 0.6 MG CAPSULE PO SCH (17:00)
[2021-05-05] MEDS: TAMSULOSIN 0.4 MG CAPSULE PO SCH (21:02)
[2021-05-06] MEDS: INSULIN LISPRO 100 UNIT/ML SUBCUT SCH ×4 (00:10→18:46)
[2021-05-06] MEDS: ALBUTEROL 2.5 MG/3 ML NEB RESP TX SCH ×3 (00:43→14:39)
[2021-05-06 04:19] LABS: Basophils % 0.1 % (0.0-0.8); Eosinophils % 0.3 % (0.00-10.9); Hematocrit 26.2 VOL% (42.0-52.0); Hemoglobin 8.6 GM/DL (14.0-18.0); Immature Granulocytes % 0.8 %; Immature Granulocytes Absolute 0.07 #; Lymphocytes # 0.3 10*3/uL (1.4-4.0); Lymphocytes % 3.1 % (21.2-54.2); Mean Corpuscular HGB Conc 32.8 GM/DL (32-36); Mean Corpuscular Volume 95.6 FL (87-102); Mean Platelet Volume 11.3 FL (9.6-12.0); Monocytes % 8.3 % (1.7-12.7); Neutrophils % 87.4 % (38.7-73.9); Red Cell Distribution Width 18.4 % (9.3-17.3); White Blood Count 8.9 T/CUMM (4-12)
[2021-05-06 04:21] LABS: Platelet Count 74 T/CUMM (130-400); Red Blood Count 2.74 MC/CUMM (3.8-5.5)
[2021-05-06 04:40] LABS: Calcium 7.8 MG/DL (8.5-10.1); Osmolality,Calculated 314.7 MOS/KG (273-304); Potassium 4.1 MMOL/L (3.5-5.1)
[2021-05-06 04:41] LABS: Eosinophils 2 % (0-10); Hypochromasia 1+; Lymphocytes 1 % (20-55); Microcytosis 1+; Nucleated Red Blood Cells 1 (0-5); Platelet Estimate Decreased; Segmented Neutrophils 90 % (50-85); Total Cells Counted 100
[2021-05-06] MEDS: LEVOTHYROXINE 25 MCG TABLET PO SCH (06:02)
[2021-05-06] MEDS: FAMOTIDINE 20 MG TABLET PO SCH (08:05)
[2021-05-06] MEDS: CHOLECALCIFEROL 1,000 UNIT TABLET PO SCH (08:05)
[2021-05-06] MEDS: TICAGRELOR 90 MG TABLET PO SCH ×2 (08:05→22:04)
[2021-05-06] MEDS: ASPIRIN EC 81 MG TABLET PO SCH (08:05)
[2021-05-06] MEDS: cefTRIAXone 1,000 MG in SODIUM CHLORIDE 0.9% 100 ML IV SCH (08:06)
[2021-05-06] MEDS: LACTULOSE 20 GM/30 ML UDCUP PO SCH ×2 (08:06→22:04)
[2021-05-06] MEDS ORDERED: METHYL SALICYLATE 60 ML BOTTLE TOP PRN (08:21)
[2021-05-06] MEDS: DESITIN 4OZ/NYSTATIN 15 GRAM MIXTURE PASTE TOP SCH ×2 (08:32→22:23)
[2021-05-06] MEDS ORDERED: COLCHICINE 0.6 MG CAPSULE PO SCH (09:00)
[2021-05-06] MEDS: TAMSULOSIN 0.4 MG CAPSULE PO SCH (22:04)
[2021-05-07] MEDS: ALBUTEROL 2.5 MG/3 ML NEB RESP TX SCH ×4 (01:09→23:50)
[2021-05-07 06:00] LABS: Basophils % 0.1 % (0.0-0.8); Eosinophils # 0.1 10*3/uL (0.0-0.87); Eosinophils % 0.7 % (0.00-10.9); Hemoglobin 8.5 GM/DL (14.0-18.0); Immature Granulocytes % 0.5 %; Immature Granulocytes Absolute 0.04 #; Lymphocytes # 0.4 10*3/uL (1.4-4.0); Lymphocytes % 4.4 % (21.2-54.2); Mean Corpuscular HGB Conc 32.7 GM/DL (32-36); Mean Corpuscular Volume 94.9 FL (87-102); Mean Platelet Volume 11.4 FL (9.6-12.0); Neutrophils % 85.3 % (38.7-73.9); Platelet Count 97 T/CUMM (130-400); Red Blood Count 2.74 MC/CUMM (3.8-5.5); Red Cell Distribution Width 17.9 % (9.3-17.3); White Blood Count 8.1 T/CUMM (4-12)
[2021-05-07 06:17] LABS: Osmolality,Calculated 297.8 MOS/KG (273-304)
[2021-05-07 06:27] LABS: Lymphocytes 2 % (20-55); Platelet Estimate Decreased; Segmented Neutrophils 94 % (50-85); Total Cells Counted 100
[2021-05-07 06:28] LABS: Hypochromasia 1+
[2021-05-07] MEDS: INSULIN LISPRO 100 UNIT/ML SUBCUT SCH ×5 (08:46→23:44)
[2021-05-07] MEDS: CHOLECALCIFEROL 1,000 UNIT TABLET PO SCH (10:05)
[2021-05-07] MEDS: ASPIRIN EC 81 MG TABLET PO SCH (10:06)
[2021-05-07] MEDS: TICAGRELOR 90 MG TABLET PO SCH ×2 (10:06→20:03)
[2021-05-07] MEDS: LACTULOSE 20 GM/30 ML UDCUP PO SCH (10:06)
[2021-05-07] MEDS: cefTRIAXone 1,000 MG in SODIUM CHLORIDE 0.9% 100 ML IV SCH (10:06)
[2021-05-07] MEDS: FAMOTIDINE 20 MG TABLET PO SCH (10:06)
[2021-05-07] MEDS: LEVOTHYROXINE 25 MCG TABLET PO SCH (10:06)
[2021-05-07] MEDS: DESITIN 4OZ/NYSTATIN 15 GRAM MIXTURE PASTE TOP SCH ×2 (10:06→21:15)
[2021-05-07] MEDS ORDERED: LACTULOSE 20 GM/30 ML UDCUP PO PRN (11:10)
[2021-05-07] MEDS: TAMSULOSIN 0.4 MG CAPSULE PO SCH (20:03)
[2021-05-07] MEDS: ACETAMINOPHEN 325 MG TABLET PO PRN (20:04)
[2021-05-07] MEDS ORDERED: POLYVINYL ALCOHOL 1.4% OPH SOLN 15 ML BOTTLE BOTH EYES PRN (21:00)
[2021-05-08 05:41] LABS: Basophils % 0.1 % (0.0-0.8); Eosinophils # 0.1 10*3/uL (0.0-0.87); Eosinophils % 1.2 % (0.00-10.9); Hematocrit 25.2 VOL% (42.0-52.0); Hemoglobin 8.3 GM/DL (14.0-18.0); Immature Granulocytes % 0.6 %; Immature Granulocytes Absolute 0.04 #; Lymphocytes # 0.3 10*3/uL (1.4-4.0); Lymphocytes % 4.5 % (21.2-54.2); Mean Corpuscular HGB Conc 32.9 GM/DL (32-36); Mean Corpuscular Volume 97.3 FL (87-102); Mean Platelet Volume 10.6 FL (9.6-12.0); Monocytes % 7.6 % (1.7-12.7); Platelet Count 91 T/CUMM (130-400); Red Blood Count 2.59 MC/CUMM (3.8-5.5); White Blood Count 6.7 T/CUMM (4-12)
[2021-05-08] MEDS: INSULIN LISPRO 100 UNIT/ML SUBCUT SCH ×3 (05:44→17:13)
[2021-05-08 05:50] LABS: Calcium 7.8 MG/DL (8.5-10.1); Osmolality,Calculated 291.5 MOS/KG (273-304); Potassium 4.2 MMOL/L (3.5-5.1)
[2021-05-08 07:39] LABS: Anisocytosis 1+; Band Neutrophils 6 % (0-10); Lymphocytes 4 % (20-55); Macrocytosis 1+; Nucleated Red Blood Cells 0 (0-5); Platelet Estimate Decreased; Segmented Neutrophils 82 % (50-85); Total Cells Counted 100
[2021-05-08] MEDS: ALBUTEROL 2.5 MG/3 ML NEB RESP TX SCH ×2 (07:48→15:42)
[2021-05-08] MEDS: DESITIN 4OZ/NYSTATIN 15 GRAM MIXTURE PASTE TOP SCH ×2 (10:00→23:13)
[2021-05-08] MEDS: ASPIRIN EC 81 MG TABLET PO SCH (10:32)
[2021-05-08] MEDS: TICAGRELOR 90 MG TABLET PO SCH ×2 (10:32→20:17)
[2021-05-08] MEDS: LEVOTHYROXINE 25 MCG TABLET PO SCH (10:33)
[2021-05-08] MEDS: FAMOTIDINE 20 MG TABLET PO SCH (10:33)
[2021-05-08] MEDS: CHOLECALCIFEROL 1,000 UNIT TABLET PO SCH (10:33)
[2021-05-08] MEDS: cefTRIAXone 1,000 MG in SODIUM CHLORIDE 0.9% 100 ML IV SCH (10:36)
[2021-05-08] MEDS: TAMSULOSIN 0.4 MG CAPSULE PO SCH (20:17)
[2021-05-09] MEDS: INSULIN LISPRO 100 UNIT/ML SUBCUT SCH ×5 (01:11→23:53)
[2021-05-09 05:11] LABS: Eosinophils # 0.1 10*3/uL (0.0-0.87); Eosinophils % 1.8 % (0.00-10.9); Hematocrit 25.3 VOL% (42.0-52.0); Hemoglobin 8.2 GM/DL (14.0-18.0); Immature Granulocytes % 0.6 %; Immature Granulocytes Absolute 0.02 #; Lymphocytes # 0.2 10*3/uL (1.4-4.0); Lymphocytes % 5.1 % (21.2-54.2); Mean Corpuscular HGB Conc 32.4 GM/DL (32-36); Mean Corpuscular Volume 98.8 FL (87-102); Mean Platelet Volume 10.6 FL (9.6-12.0); Monocytes % 8.2 % (1.7-12.7); Neutrophils % 84.3 % (38.7-73.9); Platelet Count 81 T/CUMM (130-400); Red Blood Count 2.56 MC/CUMM (3.8-5.5); Red Cell Distribution Width 16.1 % (9.3-17.3); White Blood Count 3.3 T/CUMM (4-12)
[2021-05-09 05:30] LABS: Platelet Estimate Decreased
[2021-05-09 05:31] LABS: Anisocytosis 1+; Macrocytosis 1+; Polychromasia Slight
[2021-05-09 05:38] LABS: Calcium 7.9 MG/DL (8.5-10.1); Osmolality,Calculated 286.2 MOS/KG (273-304); Potassium 4.2 MMOL/L (3.5-5.1)
[2021-05-09] MEDS: LEVOTHYROXINE 25 MCG TABLET PO SCH (06:11)
[2021-05-09] MEDS: ALBUTEROL 2.5 MG/3 ML NEB RESP TX SCH ×3 (07:23→13:38)
[2021-05-09] MEDS: TICAGRELOR 90 MG TABLET PO SCH ×2 (10:15→21:14)
[2021-05-09] MEDS: FAMOTIDINE 20 MG TABLET PO SCH (10:15)
[2021-05-09] MEDS: ASPIRIN EC 81 MG TABLET PO SCH (10:16)
[2021-05-09] MEDS: CHOLECALCIFEROL 1,000 UNIT TABLET PO SCH (10:16)
[2021-05-09] MEDS: DESITIN 4OZ/NYSTATIN 15 GRAM MIXTURE PASTE TOP SCH ×2 (10:17→21:15)
[2021-05-09] MEDS: cefTRIAXone 1,000 MG in SODIUM CHLORIDE 0.9% 100 ML IV SCH (11:41)
[2021-05-09] MEDS: LACTULOSE 20 GM/30 ML UDCUP PO SCH (14:40)
[2021-05-09] MEDS: TAMSULOSIN 0.4 MG CAPSULE PO SCH (21:14)
[2021-05-10] MEDS: ALBUTEROL 2.5 MG/3 ML NEB RESP TX SCH ×4 (01:50→23:55)
[2021-05-10] MEDS: INSULIN LISPRO 100 UNIT/ML SUBCUT SCH ×3 (05:33→17:27)
[2021-05-10] MEDS: LEVOTHYROXINE 25 MCG TABLET PO SCH (06:07)
[2021-05-10 06:41] LABS: Basophils % 0.2 % (0.0-0.8); Eosinophils # 0.2 10*3/uL (0.0-0.87); Eosinophils % 2.3 % (0.00-10.9); Hematocrit 26.6 VOL% (42.0-52.0); Hemoglobin 8.7 GM/DL (14.0-18.0); Immature Granulocytes % 0.3 %; Immature Granulocytes Absolute 0.02 #; Lymphocytes # 0.3 10*3/uL (1.4-4.0); Mean Corpuscular HGB Conc 32.7 GM/DL (32-36); Mean Corpuscular Volume 96.4 FL (87-102); Mean Platelet Volume 9.4 FL (9.6-12.0); Monocytes % 7.5 % (1.7-12.7); Neutrophils % 85.7 % (38.7-73.9); Platelet Count 114 T/CUMM (130-400); Red Blood Count 2.76 MC/CUMM (3.8-5.5); Red Cell Distribution Width 15.9 % (9.3-17.3); White Blood Count 6.6 T/CUMM (4-12)
[2021-05-10 07:12] LABS: Anisocytosis 2+; Eosinophils 3 % (0-10); Lymphocytes 3 % (20-55); Platelet Estimate Adequate; Segmented Neutrophils 89 % (50-85); Total Cells Counted 100
[2021-05-10 07:13] LABS: Hypersegmented Neutrophil Few; Macrocytosis Slight; Smudge Cells Few
[2021-05-10 07:18] LABS: Albumin 1.8 G/DL (3.4-5.0); Bilirubin,Total 1.5 MG/DL (0.20-1.00); Total Protein 5.3 G/DL (6.4-8.2)
[2021-05-10] MEDS: LACTULOSE 20 GM/30 ML UDCUP PO SCH ×2 (13:40→21:02)
[2021-05-10] MEDS: FAMOTIDINE 20 MG TABLET PO SCH (13:41)
[2021-05-10] MEDS: ASPIRIN EC 81 MG TABLET PO SCH (13:42)
[2021-05-10] MEDS: TICAGRELOR 90 MG TABLET PO SCH ×2 (13:42→21:01)
[2021-05-10] MEDS: DESITIN 4OZ/NYSTATIN 15 GRAM MIXTURE PASTE TOP SCH ×2 (13:42→21:02)
[2021-05-10] MEDS: CHOLECALCIFEROL 1,000 UNIT TABLET PO SCH (13:42)
[2021-05-10] MEDS: TAMSULOSIN 0.4 MG CAPSULE PO SCH (21:01)
[2021-05-11] MEDS: INSULIN LISPRO 100 UNIT/ML SUBCUT SCH ×4 (02:45→18:11)
[2021-05-11 04:47] LABS: Basophils % 0.3 % (0.0-0.8); Eosinophils # 0.1 10*3/uL (0.0-0.87); Eosinophils % 1.6 % (0.00-10.9); Hematocrit 27.1 VOL% (42.0-52.0); Hemoglobin 8.9 GM/DL (14.0-18.0); Immature Granulocytes % 0.3 %; Immature Granulocytes Absolute 0.02 #; Lymphocytes # 0.3 10*3/uL (1.4-4.0); Lymphocytes % 4.5 % (21.2-54.2); Mean Corpuscular HGB Conc 32.8 GM/DL (32-36); Mean Corpuscular Volume 96.4 FL (87-102); Mean Platelet Volume 9.6 FL (9.6-12.0); Monocytes % 7.5 % (1.7-12.7); Neutrophils % 85.8 % (38.7-73.9); Platelet Count 127 T/CUMM (130-400); Red Blood Count 2.81 MC/CUMM (3.8-5.5); Red Cell Distribution Width 15.6 % (9.3-17.3); White Blood Count 6.7 T/CUMM (4-12)
[2021-05-11 05:09] LABS: Albumin 1.9 G/DL (3.4-5.0); Bilirubin,Total 1.2 MG/DL (0.20-1.00); Osmolality,Calculated 289.5 MOS/KG (273-304); Potassium 3.6 MMOL/L (3.5-5.1); Total Protein 5.6 G/DL (6.4-8.2)
[2021-05-11 05:18] LABS: Band Neutrophils 3 % (0-10); Eosinophils 2 % (0-10); Lymphocytes 2 % (20-55); Segmented Neutrophils 90 % (50-85); Total Cells Counted 100
[2021-05-11 05:19] LABS: Hypochromasia Slight; Microcytosis 1+; Platelet Estimate Adequate
[2021-05-11] MEDS: ALBUTEROL 2.5 MG/3 ML NEB RESP TX SCH ×2 (07:09→15:11)
[2021-05-11] MEDS: ASPIRIN EC 81 MG TABLET PO SCH (09:50)
[2021-05-11] MEDS: TICAGRELOR 90 MG TABLET PO SCH ×2 (09:52→21:46)
[2021-05-11] MEDS: LEVOTHYROXINE 25 MCG TABLET PO SCH (09:52)
[2021-05-11] MEDS: LACTULOSE 20 GM/30 ML UDCUP PO SCH ×2 (09:52→21:45)
[2021-05-11] MEDS: FAMOTIDINE 20 MG TABLET PO SCH ×2 (09:53→14:51)
[2021-05-11] MEDS: CHOLECALCIFEROL 1,000 UNIT TABLET PO SCH (09:53)
[2021-05-11] MEDS: DESITIN 4OZ/NYSTATIN 15 GRAM MIXTURE PASTE TOP SCH ×2 (09:53→21:46)
[2021-05-11] MEDS ORDERED: methylPREDNISolone SOD SUC 40 MG/1 ML VIAL IV SCH (12:30)
[2021-05-11] MEDS: diphenhydrAMINE CAP 25 MG CAPSULE PO SCH ×2 (13:22→21:46)
[2021-05-11] MEDS: TAMSULOSIN 0.4 MG CAPSULE PO SCH (21:46)
[2021-05-12] MEDS: INSULIN LISPRO 100 UNIT/ML SUBCUT SCH ×4 (01:00→17:40)
[2021-05-12] MEDS: ALBUTEROL 2.5 MG/3 ML NEB RESP TX SCH ×3 (01:50→15:40)
[2021-05-12 05:39] LABS: Albumin 1.9 G/DL (3.4-5.0); Bilirubin,Total 1.1 MG/DL (0.20-1.00); Calcium 8.1 MG/DL (8.5-10.1); Osmolality,Calculated 292.7 MOS/KG (273-304); Total Protein 5.5 G/DL (6.4-8.2)
[2021-05-12] MEDS: diphenhydrAMINE CAP 25 MG CAPSULE PO SCH ×3 (06:21→21:11)
[2021-05-12] MEDS: LEVOTHYROXINE 25 MCG TABLET PO SCH (07:34)
[2021-05-12] MEDS: ASPIRIN EC 81 MG TABLET PO SCH (09:19)
[2021-05-12] MEDS: TICAGRELOR 90 MG TABLET PO SCH ×2 (09:19→21:11)
[2021-05-12] MEDS: FAMOTIDINE 20 MG TABLET PO SCH (09:20)
[2021-05-12] MEDS: LACTULOSE 20 GM/30 ML UDCUP PO SCH (09:20)
[2021-05-12] MEDS: DESITIN 4OZ/NYSTATIN 15 GRAM MIXTURE PASTE TOP SCH ×2 (09:20→21:11)
[2021-05-12] MEDS: CHOLECALCIFEROL 1,000 UNIT TABLET PO SCH (09:20)
[2021-05-12] MEDS: methylPREDNISolone SOD SUC 40 MG/1 ML VIAL IV SCH (09:42)
[2021-05-12] MEDS: DEXTROSE 5% NACL 0.45% 1,000 ML IV SCH (09:42)
[2021-05-12] MEDS: TAMSULOSIN 0.4 MG CAPSULE PO SCH (21:11)
[2021-05-13] MEDS: INSULIN LISPRO 100 UNIT/ML SUBCUT SCH ×4 (00:16→18:59)
[2021-05-13] MEDS: ALBUTEROL 2.5 MG/3 ML NEB RESP TX SCH ×4 (01:50→14:00)
[2021-05-13 04:59] LABS: Basophils % 0.1 % (0.0-0.8); Hematocrit 25.8 VOL% (42.0-52.0); Hemoglobin 8.6 GM/DL (14.0-18.0); Immature Granulocytes % 0.4 %; Immature Granulocytes Absolute 0.04 #; Lymphocytes # 0.5 10*3/uL (1.4-4.0); Lymphocytes % 5.4 % (21.2-54.2); Mean Corpuscular HGB Conc 33.3 GM/DL (32-36); Mean Corpuscular Volume 97.4 FL (87-102); Mean Platelet Volume 9.4 FL (9.6-12.0); Monocytes % 5.4 % (1.7-12.7); Neutrophils % 88.7 % (38.7-73.9); Platelet Count 162 T/CUMM (130-400); Red Blood Count 2.65 MC/CUMM (3.8-5.5); Red Cell Distribution Width 15.3 % (9.3-17.3); White Blood Count 9.5 T/CUMM (4-12)
[2021-05-13 05:10] LABS: INR 1.1; PT Patient Result 11.9 SECS (10.5-12.0)
[2021-05-13 05:16] LABS: Calcium 8.3 MG/DL (8.5-10.1); Osmolality,Calculated 292.8 MOS/KG (273-304)
[2021-05-13] MEDS: LEVOTHYROXINE 25 MCG TABLET PO SCH (06:42)
[2021-05-13] MEDS ORDERED: LIDOCAINE 1% 20 ML VIAL ONE (06:52)
[2021-05-13] MEDS ORDERED: ceFAZolin 1,000 MG VIAL ONE (06:52)
[2021-05-13] MEDS ORDERED: ceFAZolin 1,000 MG VIAL IRRIG ONE (07:00)
[2021-05-13] MEDS ORDERED: diphenhydrAMINE CAP 25 MG CAPSULE PO ONE (07:00)
[2021-05-13] MEDS ORDERED: DIAZEPAM 5 MG TABLET PO ONE (07:00)
[2021-05-13] MEDS: diphenhydrAMINE CAP 25 MG CAPSULE PO SCH ×3 (07:08→21:09)
[2021-05-13] MEDS ORDERED: fentaNYL 100 MCG/2 ML VIAL ONE (07:19)
[2021-05-13] MEDS ORDERED: MIDAZOLAM 2 MG/2 ML VIAL ONE ×2 (07:19→09:16)
[2021-05-13] MEDS ORDERED: TISSUE ADHESIVE 1 EACH APPLICATOR TOP ONE (09:17)
[2021-05-13] MEDS: FAMOTIDINE 20 MG TABLET PO SCH (10:26)
[2021-05-13] MEDS: methylPREDNISolone SOD SUC 40 MG/1 ML VIAL IV SCH (10:27)
[2021-05-13] MEDS: LACTULOSE 20 GM/30 ML UDCUP PO SCH (10:27)
[2021-05-13] MEDS: CHOLECALCIFEROL 1,000 UNIT TABLET PO SCH (10:27)
[2021-05-13] MEDS: ASPIRIN EC 81 MG TABLET PO SCH (10:27)
[2021-05-13] MEDS: TICAGRELOR 90 MG TABLET PO SCH ×2 (10:27→21:09)
[2021-05-13] MEDS: DESITIN 4OZ/NYSTATIN 15 GRAM MIXTURE PASTE TOP SCH ×2 (10:42→21:10)
[2021-05-13] MEDS: DEXTROSE 5% NACL 0.45% 1,000 ML IV SCH (18:56)
[2021-05-13] MEDS: TAMSULOSIN 0.4 MG CAPSULE PO SCH (21:10)
[2021-05-14] MEDS: INSULIN LISPRO 100 UNIT/ML SUBCUT SCH ×3 (01:25→11:36)
[2021-05-14 05:14] LABS: Basophils % 0.1 % (0.0-0.8); Eosinophils % 0.4 % (0.00-10.9); Hematocrit 27.1 VOL% (42.0-52.0); Hemoglobin 8.8 GM/DL (14.0-18.0); Immature Granulocytes % 0.8 %; Immature Granulocytes Absolute 0.06 #; Lymphocytes # 0.5 10*3/uL (1.4-4.0); Lymphocytes % 7.1 % (21.2-54.2); Mean Corpuscular HGB Conc 32.5 GM/DL (32-36); Mean Corpuscular Volume 97.5 FL (87-102); Mean Platelet Volume 9.3 FL (9.6-12.0); Neutrophils % 84.6 % (38.7-73.9); Platelet Count 186 T/CUMM (130-400); Red Blood Count 2.78 MC/CUMM (3.8-5.5); Red Cell Distribution Width 15.5 % (9.3-17.3); White Blood Count 7.6 T/CUMM (4-12)
[2021-05-14 05:39] LABS: Calcium 8.3 MG/DL (8.5-10.1); Osmolality,Calculated 301.5 MOS/KG (273-304); Potassium 4.5 MMOL/L (3.5-5.1)
[2021-05-14] MEDS: diphenhydrAMINE CAP 25 MG CAPSULE PO SCH (06:09)
[2021-05-14] MEDS: ALBUTEROL 2.5 MG/3 ML NEB RESP TX SCH (07:45)
[2021-05-14] MEDS: LACTULOSE 20 GM/30 ML UDCUP PO SCH (09:39)
[2021-05-14] MEDS: FAMOTIDINE 20 MG TABLET PO SCH (09:39)
[2021-05-14] MEDS: LEVOTHYROXINE 25 MCG TABLET PO SCH (09:39)
[2021-05-14] MEDS: TICAGRELOR 90 MG TABLET PO SCH (09:39)
[2021-05-14] MEDS: ASPIRIN EC 81 MG TABLET PO SCH (09:39)
[2021-05-14] MEDS: CHOLECALCIFEROL 1,000 UNIT TABLET PO SCH (09:39)
[2021-05-14] MEDS: DESITIN 4OZ/NYSTATIN 15 GRAM MIXTURE PASTE TOP SCH (09:40)
[2021-05-14] MEDS: methylPREDNISolone SOD SUC 40 MG/1 ML VIAL IV SCH (09:40)
[2021-05-14] MEDS: DEXTROSE 5% NACL 0.45% 1,000 ML IV SCH (11:36)
[2021-05-14 12:40] VITALS: BP 153/69
== END 2021-05-14 12:05 | DRG 242 ==
LOC: SUATTDRO 22:03 → N.ICU 22:03 → N.TELEN 05-06 16:47
PROVIDERS: ADMIT Internal Medicine Pulmonary Disease; ATTEND Internal Medicine

== ENCOUNTER 2021-07-17 22:26 | Inpatient (IN) ==
[2021-07-18 00:25] LABS: Basophils % 0.3 % (0.0-0.8); Eosinophils # 0.1 10*3/uL (0.0-0.87); Eosinophils % 1.3 % (0.00-10.9); Hemoglobin 10.8 GM/DL (14.0-18.0); Immature Granulocytes % 0.9 %; Immature Granulocytes Absolute 0.07 #; Lymphocytes % 12.6 % (21.2-54.2); Mean Corpuscular HGB Conc 33.8 GM/DL (32-36); Mean Corpuscular Volume 99.4 FL (87-102); Mean Platelet Volume 9.3 FL (9.6-12.0); Monocytes % 10.4 % (1.7-12.7); Neutrophils % 74.5 % (38.7-73.9); Platelet Count 172 T/CUMM (130-400); Red Blood Count 3.22 MC/CUMM (3.8-5.5); Red Cell Distribution Width 13.8 % (9.3-17.3); White Blood Count 7.6 T/CUMM (4-12)
[2021-07-18 00:40] LABS: Calcium 8.8 MG/DL (8.5-10.1); Osmolality,Calculated 277.5 MOS/KG (273-304); Potassium 3.4 MMOL/L (3.5-5.1)
[2021-07-18] MEDS ORDERED: ACETAMINOPHEN 325 MG TABLET PO PRN (02:51)
[2021-07-18] MEDS ORDERED: ONDANSETRON 4 MG/2 ML VIAL IV PRN (02:51)
[2021-07-18] MEDS: PANTOPRAZOLE 40 MG TABLET PO SCH (09:10)
[2021-07-18] MEDS: ENOXAPARIN 40 MG/0.4 ML SYRINGE SUBCUT SCH (19:11)
[2021-07-19] MEDS ORDERED: ceFAZolin 2,000 MG/50 ML DUPLEX IV ONE (08:00)
[2021-07-19] MEDS: PANTOPRAZOLE 40 MG TABLET PO SCH (09:30)
[2021-07-19] MEDS ORDERED: COLCHICINE 0.6 MG CAPSULE PO PRN (09:34)
[2021-07-19] MEDS ORDERED: POTASSIUM CHLORIDE 10 MEQ TABLET PO ONE (11:00)
[2021-07-19] MEDS ORDERED: MAGNESIUM SULF RIDER 2 GM/50 ML PREMIX IV ONE (11:00)
[2021-07-19] MEDS: predniSONE 5 MG TABLET PO SCH (12:12)
[2021-07-19] MEDS: carvediloL 6.25 MG TABLET PO SCH ×2 (12:12→17:56)
[2021-07-19] MEDS: ASPIRIN EC 81 MG TABLET PO SCH (12:12)
[2021-07-19] MEDS: SENNA 8.6 MG TABLET PO SCH (12:12)
[2021-07-19] MEDS ORDERED: hydrALAZINE 25 MG TABLET PO SCH (15:00)
[2021-07-19] MEDS: hydrALAZINE 25 MG TABLET PO SCH ×2 (17:56→22:25)
[2021-07-19] MEDS: TAMSULOSIN 0.4 MG CAPSULE PO SCH (22:24)
[2021-07-19] MEDS: GABAPENTIN 100 MG CAPSULE PO SCH (22:24)
[2021-07-19] MEDS: ATORVASTATIN 40 MG TABLET PO SCH (22:25)
[2021-07-19] MEDS: ENOXAPARIN 40 MG/0.4 ML SYRINGE SUBCUT SCH (22:26)
[2021-07-19] MEDS: CLOTRIMAZOLE 1% CREAM 15 GM TUBE TOP SCH (23:55)
[2021-07-20] MEDS ORDERED: ETOMIDATE 40 MG/20 ML VIAL IV ONE (06:28)
[2021-07-20] MEDS ORDERED: fentaNYL 100 MCG/2 ML VIAL ONE (06:28)
[2021-07-20] MEDS ORDERED: ROCURONIUM 50 MG/5 ML VIAL IV ONE (06:28)
[2021-07-20] MEDS ORDERED: LIDOCAINE 2% 5 ML VIAL ONE (06:28)
[2021-07-20] MEDS ORDERED: TISSUE ADHESIVE 1 EACH APPLICATOR TOP ONE (06:38)
[2021-07-20] MEDS ORDERED: ROPIVACAINE 0.5% 30 ML VIAL ONE (06:43)
[2021-07-20] MEDS ORDERED: DEXAMETHASONE 4 MG/1 ML VIAL ONE ×2 (06:43→08:39)
[2021-07-20] MEDS ORDERED: LIDOCAINE 1% 5 ML VIAL ONE (06:43)
[2021-07-20] MEDS: LEVOTHYROXINE 25 MCG TABLET PO SCH (06:55)
[2021-07-20] MEDS ORDERED: PHENYLEPHRINE 10 MG/1 ML VIAL IV ONE (07:40)
[2021-07-20] MEDS ORDERED: ONDANSETRON 4 MG/2 ML VIAL ONE (08:39)
[2021-07-20] MEDS ORDERED: ceFAZolin 1,000 MG VIAL ONE (08:39)
[2021-07-20] MEDS ORDERED: GLYCOPYRROLATE 0.4 MG/2 ML VIAL ONE (08:53)
[2021-07-20] MEDS ORDERED: SEVOFLURANE 1 UNIT/15 MINUTE INH ONE (08:53)
[2021-07-20] MEDS ORDERED: NEOSTIGMINE 10 MG/10 ML VIAL ONE (08:53)
[2021-07-20] MEDS: carvediloL 6.25 MG TABLET PO SCH ×2 (12:16→17:20)
[2021-07-20] MEDS: hydrALAZINE 25 MG TABLET PO SCH ×3 (12:16→20:25)
[2021-07-20] MEDS: PANTOPRAZOLE 40 MG TABLET PO SCH (12:32)
[2021-07-20] MEDS: allopurinoL 100 MG TABLET PO SCH (12:32)
[2021-07-20] MEDS: ASPIRIN EC 81 MG TABLET PO SCH (12:32)
[2021-07-20] MEDS: ISOSORBIDE MONONITRATE 30 MG TABLET PO SCH (12:32)
[2021-07-20] MEDS: predniSONE 5 MG TABLET PO SCH (12:32)
[2021-07-20] MEDS: SENNA 8.6 MG TABLET PO SCH (12:32)
[2021-07-20] MEDS: ATORVASTATIN 40 MG TABLET PO SCH (20:07)
[2021-07-20] MEDS: GABAPENTIN 100 MG CAPSULE PO SCH (20:07)
[2021-07-20] MEDS: TAMSULOSIN 0.4 MG CAPSULE PO SCH (20:08)
[2021-07-20] MEDS: CLOTRIMAZOLE 1% CREAM 15 GM TUBE TOP SCH ×2 (20:11→20:12)
[2021-07-20] MEDS: ENOXAPARIN 40 MG/0.4 ML SYRINGE SUBCUT SCH (20:25)
[2021-07-21] MEDS: LEVOTHYROXINE 25 MCG TABLET PO SCH (06:48)
[2021-07-21 08:48] VITALS: BP 119/58
[2021-07-21] MEDS: SENNA 8.6 MG TABLET PO SCH (09:10)
[2021-07-21] MEDS: carvediloL 6.25 MG TABLET PO SCH (09:10)
[2021-07-21] MEDS: hydrALAZINE 25 MG TABLET PO SCH (09:10)
[2021-07-21] MEDS: ASPIRIN EC 81 MG TABLET PO SCH (09:10)
[2021-07-21] MEDS: ISOSORBIDE MONONITRATE 30 MG TABLET PO SCH (09:11)
[2021-07-21] MEDS: allopurinoL 100 MG TABLET PO SCH (09:11)
[2021-07-21] MEDS: predniSONE 5 MG TABLET PO SCH (09:11)
[2021-07-21] MEDS: PANTOPRAZOLE 40 MG TABLET PO SCH (09:11)
[2021-07-21] MEDS: CLOTRIMAZOLE 1% CREAM 15 GM TUBE TOP SCH (11:42)
== END 2021-07-21 12:12 | disposition home or self-care (01) | DRG 351 ==
LOC: N.ED 22:26 → N.EDINP 23:56 → N.5E 07-18 15:51
PROVIDERS: ADMIT Surgery; ATTEND Surgery